=== PATIENT | male | born 1985 | race Caucasian/White ===

== ENCOUNTER 2023-02-08 16:07 | Emergency (ER) | payer OTHER, SELFPAY ==
--- NOTE | 2023-02-08 16:14 | ED.EAR ---
HPI - Ear Problem General Chief complaint: Ear Stated complaint: Left Ear Pain Source: patient and RN notes reviewed History of Present Illness HPI Narrative: 37 yo M presents to urgent care with complaints of left ear pain x 2 days. Pt denies any fevers, chills, chest pain, SOB, congestion, sore throat, N/V/D, or other symptoms. Related Data Home Medications Medication Instructions Recorded Confirmed insulin aspart U-100 100 unit/mL 150 unit subcut DAILY 02/08/23 02/08/23 subcutaneous solution (Novolog U-100 Insulin aspart) levothyroxine 25 mcg tablet 25 mcg PO DAILY 02/08/23 02/08/23 lisinopril 20 mg tablet 20 mg PO DAILY 02/08/23 02/08/23 Allergies Allergy/AdvReac Type Severity Reaction Status Date / Time No Known Allergies Allergy Unknown Verified 02/08/23 16:17 Review of Systems Review of Systems: Pertinent positives and pertinent negatives per HPI. COUNT INCLUDES THE [facility] Past Medical History Medical History (Updated 02/08/23 @ 16:31 by Aracelis Gamble, STEAM TRAIN DRIVER) Retinopathy Family History Family History (Updated 06/05/19 @ 08:15 by Aracelis Aponte, [facility]) Mother Hypothyroidism Other Alzheimer disease Anxiety Cancer Hypertension Thyroid disease Social History Social History (Updated 06/04/19 @ 13:14 by Phil Nassar) Smoking status: Never smoker Alcohol intake: current Comments At the time of my signature, I reviewed and agree with the nursing past medical, surgical, social, and family history. There is no relevant family history pertinent to the patient complaint. Exam Narrative: GENERAL: This is a well-nourished, well-developed patient, in no apparent distress. HEAD: normocephalic, atraumatic. EYES: Sclera clear/white. Vision is grossly intact. EARS: External ears normal with the exception of dry psoriatic skin, auditory canals clear and without drainage, Right TM normal without perforation. Hearing grossly intact. Left TM erythremic and bulging. NOSE: External nose normal with no obvious nasal discharge, nares without redness, no rhinorrhea. THROAT: Mucous membranes moist, posterior pharynx clear. NECK: Neck supple, non-tender without lymphadenopathy, masses or thyromegaly. CARDIOVASCULAR: Regular rate and rhythm without murmurs, gallops, or rubs. RESPIRATORY: Clear to auscultation. Breath sounds equal bilaterally. No wheezes, rales, or rhonchi. SKIN: warm, intact with no suspicious lesions or rash, good texture and turgor. NEURO: awake, alert, and oriented to person, place and time. There were no obvious focal neurologic abnormalities. EXTREMITIES: No clubbing, cyanosis, or edema. No joint tenderness, effusion, or edema noted. BACK: Nontender without deformity or crepitus. No flank tenderness. Course Course Level of Care: Express Care Visit Vital Signs Vital signs: Reviewed Medical Decision Making MDM Narrative Medical decision making narrative: Take antibiotics as directed. May given ibuprofen and/or Tylenol as needed for pain and/or fever. Follow up with primary care provider in 7-10 days to have ear rechecked. Differential Diagnosis Differential Diagnosis: AOM, otitis externa, cerumen impaction Critical Care Time Critical Care Time Critical Care Time: No Discharge Plan Discharge Clinical Impression: Otitis media Qualifiers: Otitis media type: unspecified Chronicity: acute Qualified Code(s): H66.90 - Otitis media, unspecified, unspecified ear Patient Disposition: Home, Self-Care Condition: Stable Instructions: Antibiotic Form, Ear Infection in Children (AC) Additional Instructions: Take antibiotics as directed. May given ibuprofen and/or Tylenol as needed for pain and/or fever. Follow up with primary care provider in 7-10 days to have ear rechecked. Prescriptions: New amoxicillin 500 mg capsule 500 mg PO Q12H Qty: 20 0RF No Action lisinopril 20 mg tablet 20 mg PO DAILY levothyroxine 25 mcg tablet 25 mcg PO DAILY
[2023-02-08 16:30] VITALS: BP 137/77; PULSE 90; RESP 18; TEMP 36.7; O2SAT 98
== END 2023-02-08 16:35 | disposition home or self-care (01) ==
PROVIDERS: Emergency Provider Nurse Practitioner Family
DX: H66.90 Otitis media, unspecified, unspecified ear (principal); Z79.4 Long term (current) use of insulin
CPT/HCPCS: 99203; G0463

== ENCOUNTER 2024-04-25 13:24 | Emergency (ER) | payer OTHER, SELFPAY ==
[2024-04-25 13:29] VITALS: BP 151/91; PULSE 102; RESP 16; TEMP 36.9; O2SAT 99
--- NOTE | 2024-04-25 13:35 | ED_ITS ---
HPI - Skin/Abscess/Foreign Bdy General Chief complaint: Wound/Laceration Stated complaint: abcess on right inner thigh Time Seen by Provider: 04/25/24 13:43 Source: patient and RN notes reviewed Mode of arrival: ambulatory Limitations: dementia History of Present Illness HPI narrative: 38-year-old male with history of diabetes presents with concern for an abscess on his right inner thigh. Reports history of infected ingrown hairs. He denies any fever, body aches, chills, sweats MD complaint: other (Redness) Related Data Home Medications Medication Instructions Recorded Confirmed insulin aspart U-100 100 unit/mL 150 unit subcut DAILY 02/08/23 02/08/23 subcutaneous solution (Novolog U-100 Insulin aspart) levothyroxine 25 mcg tablet 25 mcg PO DAILY 02/08/23 02/08/23 lisinopril 20 mg tablet 20 mg PO DAILY 02/08/23 02/08/23 hydrocortisone 2.5 % topical cream applic topical 04/25/24 Allergies Allergy/AdvReac Type Severity Reaction Status Date / Time No Known Allergies Allergy Unknown Verified 04/25/24 13:35 Review of Systems Review of Systems: CONSTITUTIONAL: Denies malaise, chills, sweats, or fever. EYES: Denies redness, or discharge. ENT: Denies rhinorrhea, congestion, swollen lips, swollen tongue CARDIOVASCULAR: Denies chest pain, palpitations, or edema. RESPIRATORY: Denies cough or dyspnea. GASTROINTESTINAL: Denies abdominal pain, nausea, vomiting SKIN: Reports redness, swelling to the right inner thigh. Denies purulent drainage, vesicles, bullae, numbness, pain beyond proportion MUSCULOSKELETAL: Denies joint pain or myalgia. NEUROLOGIC: Denies headache. All systems reviewed & are unremarkable except as noted in HPI and below PMFSH Past Medical History Medical History (Updated 04/25/24 @ 13:55 by Diane Gonzalez NP) Retinopathy Family History Family History (Updated 06/05/19 @ 08:15 by Aracelis Aponte CMA) Mother Hypothyroidism Other Alzheimer disease Anxiety Cancer Hypertension Thyroid disease Social History Social History (Updated 06/04/19 @ 13:14 by Phil Nassar) Smoking status: Never smoker Alcohol intake: current Comments At time of signature, agree with nursing past medical, surgical, social and family history. There is no relevant family history pertinent to the presenting complaint Exam Narrative: GENERAL: Well-appearing, well-nourished, and in no acute distress. HEAD: Normocephalic, atraumatic. EYES: PERRLA, conjunctivae clear ENT: Mucous membranes moist. NECK: Supple. No lymphadenopathy CHEST: Clear to auscultation. No respiratory distress. HEART: Regular rate and rhythm. SKIN: Warm, dry. Proximally 1 cm raised fluctuant area to the right inner thigh surrounded by approximately 5 cm of erythema and induration without fluctuation. No vesicles, bullae, necrosis, ecchymosis, crepitus noted. NEURO: Alert and oriented x3. PSYCH: Normal mood and affect Course Course Emergency Course: Patient is aware of diagnosis, understands and agrees to treatment plan. Anticipatory guidance given. Patient agrees to follow-up as directed and is aware of reasons to seek care at the emergency department. Portions of this record may have been created with voice recognition software Level of Care: Express Care Visit Vital Signs Vital signs: Vital Signs Temperature 98.5 F 04/25/24 13:29 Pulse Rate 102 H 04/25/24 13:29 Respiratory Rate 16 04/25/24 13:29 Blood Pressure 151/91 H 04/25/24 13:29 Pulse Oximetry 99 04/25/24 13:29 Oxygen Delivery Room Air 04/25/24 13:29 Temperature 98.5 F 04/25/24 13:29 Pulse Rate 102 H 04/25/24 13:29 Respiratory Rate 16 04/25/24 13:29 Blood Pressure 151/91 H 04/25/24 13:29 Pulse Oximetry 99 04/25/24 13:29 Oxygen Delivery Room Air 04/25/24 13:29 Reviewed. Procedures Abscess I/D lower extremity: Date of Incision: 04/25/24 Time of Incision: 13:48 Side (if applicable): right Local Anesthetic: none (ice) Technique: incised with #11 blade Amount of fluid expressed (mL): 3 Irrigation: No Packing used?: none I&D Results: Pus MDM - Skin/Abscess/Foreign Bdy MDM Narrative Medical decision making narrative: I evaluated this in the express care. History is obtained from patient who is an independent historian and physical exam was performed.? Available medical records were reviewed. ? Exam findings and relevant testing show no acute concerns or changes; patient is non-toxic appearing and is in no distress. No risk factors or findings concerning for epidural abscess, diskitis, vertebral osteomyelitis, cord compression, cauda equina, vertebral fracture or bone malignancy, AAA, or pyelonephritis. Patient instructed to consider further imaging and workup through their primary care physician as an outpatient if symptoms persist. Does not appear at this time to be erythema multiforme, bullous, SJS, TEN; no evidence at this time to suggest RMSF, NSTI, endocarditis or Lyme disease; patient looks well, nontoxic and is tolerating oral intake; no neurologic signs or symptoms; no headache, photophobia or neck pain; afebrile.? Patient does not have history of of penetrating trauma, laceration, blunt trauma, recent surgery, immunosuppression, malignancy, obesity, alcoholism, corticosteroid use.? Discussed the importance of follow-up, patient agrees; question, cellulitis versus necrotizing soft tissue infection versus abscess.?? Patient is appropriate for outpatient treatment and follow-up. Critical Care Time Critical Care Time Critical Care Time: No Discharge Plan Discharge Clinical Impression: Abscess Patient Disposition: Home, Self-Care Condition: Stable Instructions: Antibiotic Form, Abscess Incision and Drainage (DC) Additional Instructions: You have had an abscess drained at [facility]. You may shower - let the soapy water clean your wound, do not scrub it. Keep your wound covered. Follow up with your primary care physician for a wound check. Go to the Emergency Department immediately if you develop any of the following symptoms: Fevers, Increased redness or swelling around where your abscess was, Increased pain, or Generalized weakness or vomiting Please Keep the wound covered and dry. Once a day: wash the wound with soap/wate r, apply bacitracin or neosporin and re-cover the wound. If you have any worsening of symptoms, including severe pain/swelling/numbness/changes in sensation/weakness, redness which expands more than it is right now or any other concerns please return to the ED immediately. Prescriptions: New doxycycline monohydrate 100 mg tablet 100 mg PO BID 7 Days Qty: 14 0RF No Action hydrocortisone 2.5 % cream TOPICAL lisinopril 20 mg tablet 20 mg PO DAILY levothyroxine 25 mcg tablet 25 mcg PO DAILY insulin aspart U-100 [Novolog U-100 Insulin aspart] 100 unit/mL solution 150 unit subcut DAILY Follow-up/Referrals: PHYSICIAN,CAP MAKER [Primary Care Provider] - Time of Disposition: 13:56
== END 2024-04-25 13:59 | disposition home or self-care (01) ==
PROVIDERS: Emergency Provider Nurse Practitioner
DX: L02.415 Cutaneous abscess of right lower limb (principal)
CPT/HCPCS: 10060; 87070; 87075; 87205; 99213; G0463

== ENCOUNTER 2025-01-02 19:31 | Emergency (ER) | payer OTHER, SELFPAY ==
--- OUTSIDE RECORDS SUMMARY | 2025-01-02 19:33 | XMS_ITS | Clinical Summary ---
Author Organization [facility] Address [address] [place] [address] Care Team Providers Care Diabetes Trainer Name Role Phone Db Lewis MD Primary Care Provider Allergies No known active allergies Medications insulin glargine (LANTUS) 100 unit/mL subCUT Soln Inject by subcutaneous injection 2 times daily. 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 90 Tab 1 1 Active insulin lispro (HUMALOG) 100 unit/mL subCUT Soln Inject by subcutaneous injection see administration instructions. 90 - 100 u daily per insulin pump max 115 u 3 Vial 0 1 Active insulin glargine (LANTUS) 100 unit/mL subCUT Soln 63 u daily 10 mL 1 2 Active Active Problems Problem Noted Date Diagnosed Date Hypothyroidism 10/08/2009 Hyperkalemia 10/08/2009 Type I (juvenile type) diabe pelon mellitus without mention of complication, not stated as uncontrolled 12/31/2008 Weight gain 12/31/2008 Elevated blood pressure (not hypertension) 12/31 Immunizations Immunization Administration Dates Next Due (ADACEL/BOOSTRIX)(10 YR UP) TDAP VACCINE, 0.5ML, IM 05/21/2007 (PNEUMOVAX 23)(50 YRS UP) PN EUMOCOCCAL POLYSACCHARIDE (PPV23) 0.5 ML, IM 12/31/2008 Influenza Vaccine Split 3+ Yrs IM 05/17/2010 Family History Medical History Relation Name Comments High Cholesterol Father Relation Name Status Comments Brother Alive Father Alive Mother Alive Sister Alive Social History Tobacco Use Types Packs/Day Years Used Date Smoking Tobacco: Never Smokeless Tobacco: Never Alcohol Use Standard Drinks/Week Comments Yes 0 (1 standard drink = 0.6 oz pur e alcohol) Sex and Gender Information Value Date Recorded Sex Assigned at Not on file Legal Sex Male 5:31 AM 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[employer] Gender Identity Not on file Sexual Orientation Not on file Last Filed Vital Signs Vital Sign Reading Time Taken Comments Blood Pressure 110/70 09/15/2010 9:09 AM CDT Pulse - - Temperature - - Respiratory Rate - - Oxygen Saturation - - Inhaled Oxygen Concentration - - Weight 103 kg (227 lb) 09/15/2010 9:09 AM CDT Height 176.5 cm (5' 9.5) 09/15/2010 9:09 AM CDT Body Mass Index 33.04 09/15/2010 9:09 AM CDT Plan of Treatment Health Maintenance Due Date Last Done Comments HPV VACCINES (1 - Male 3-dose series) 2001 HEPATITIS B VACCINES (1 of 3 - 19+ 3-dose series) 2005 DIABETES HBA1C Q 6 MONTHS 03/17/20112010, 10/09/2009, 06/01/2009 DIABETES ANNUAL FOOT EXAM 05/17/2011 05/17/2010 DIABETES ANNUAL RETINAL EXAM 05/30/2011 05/30/2010 DIABETES MICROALBUMIN ANNUAL SCREEN 09/16/201109/15, 06/01/2009 LDL CHOLESTEROL ANNUAL 09/16/2011 1, 10/09/2009, 06/01/2009 DTAP/TDAP/TD VACCINES (2 - T d or Tdap) 05/21/2017 05/21/2007 Preventative Visit- Commercial 05/21/2024 INFLUENZA VACCINE (#1) 2024 05/17/2010 Procedures Procedure Name Priority Date/Time Associated Diagnosis Comments MICROALBUMIN/CREATIN INE RATIO, RANDOM UR Routine 09/15/2010 10:10 AM CDT LIPID PANEL Routine 09/15/2010 10:10 AM CDT HEMOGLOBIN A1C Routine 09/15/2010 10:10 AM CDT from Last 3 Months or Most Recently Relevant to Health Maintenance Results * MICROALBUMIN/CREATININE RATIO, RANDOM UR (09/15/2010 10:10 AM CDT) Creatinine, Urine 229 20 - 370 mg/dL [facility] [employer] [facility] Comment: Test Performed at: [facility] [address] BENOIT OSULLIVAN DO,MPH MICROALBUMIN, URINE 0.7 mg/dL [facility] [employer] [facility] Comment: Reference Range Not established Test Performed at: [facility] [address] [address] BENOIT OSULLIVAN DO,MPH MICROALBUMIN/CREAT RATIO, UR 3 <30 mcg/mg creat [facility] Comment: The ADA defines abnormalities in albumin excretion as follows: Category Result (mcg/mg creatinine) Normal <30 Microalbuminuria 30-299 Clinical albuminuria > OR = 300 The ADA recommends that at least two of three specimens collected within a 3-6 month period be abnormal before considering a patient to be within a diagnostic category. REPORT COMMENT: FASTING 09/15/2010 10:1 0 AM CDT Db Lewis MD URINE ORDERABLES Final Result INTERFACE SYSTEM Refer to clinic/[place] [address] * (ABNORMAL) HEMOGLOBIN A1C (09/15/2010 10:10 AM CDT) HEMOGLOBIN A1C 10.0(H) <5.7 % of total Hgb [facility] Comment: Consistent with diabetes <5.7 Decreased risk of diabetes 5.7-6.0 Increased risk of diabetes 6.1-6.4 Higher risk of diabetes > or = 6.5 Consistent with diabetes Standards of Medical Care in Diabetes-2010. Diabetes Care, 33(Supp 1): S1-S61,2010. REPORT COMMENT: FASTING Test Performed at: [facility] [address] BENOIT OSULLIVAN DO,MPH 09/15/2010 10:1 0 AM CDT Db Lewis MD CHEMISTRY ORDERABLES Final Re sult Performing Organization Address [facility] Phone Number INTERFACE SYSTEM Refer to clinic/hospital department [facility] [address] [place] [address] * LIPID PANEL (09/15/2010 10:10 AM CDT) CHOLESTEROL 177 125 - 200 mg/dL [facility] Comment: Test Performed at: [facility] [address] [place] [address] BENOIT OSULLIVAN DO,MPH HDL 40 > OR = 40 mg/dL [facility] TRIGLYCERIDE 93 <150 mg/dL [facility] LDL CALCULATED 118 <130 mg/dL (calc) [facility] Comment: Desirable range <100 mg/dL for patients with CHD or diabetes and <70 mg/dL for diabetic patients with known heart disease. CHOL/HDL RATIO 4.4 < OR = 5.0 (calc) [facility] 09/15/2010 10:1 0 AM CDT Db Lewis MD CHEMISTRY ORDERABLES Final Re sult Performing Organization Address [facility] Phone Number INTERFACE SYSTEM Refer to clinic/hospital department [employer] [facility] [address] [place] [address] from Last 3 Months or Most Recently Relevant to Health Maintenance Insurance [employer] Care Teams Diabetes Trainer Relationship Specialty Start Date End Date Db Lewis MD PCP - General 12/31/08
--- OUTSIDE RECORDS SUMMARY | 2025-01-02 19:33 | XMS_ITS | Clinical Summary ---
Author Organization [facility] Physician Office Building [address] [place] [id number] Care Team Providers Care Toy Trains And Accessories Salesperson Name Role Phone Louie Schrader Primary Care Provider + Allergies Active Allergy Reactions Criticality Noted Date Comments Lisinopril Other (See comments) Medium 06/23/2024 Brain fog Medications blood-glucose meter (CONTOUR NEXT METER) misc USE DIRECTED 03/23/20 16 Active blood glucose diagnostic (CONTOUR NEXT STRIPS) strip by in vitro route. 03/23/20 16 Active insulin glargine (LANTUS U-100 INSULIN) 100 unit/mL injection Inject 40 units qHS SC as directed 02/20/20 13 Active glucagon (glucagon) 1 mg kit Use as directed for low blood sugar. 1 kit 11 09/12/19 18 Active hydrocortisone 2.5 % cream APPLY TO AFFECTED AREAS WHEN FLARED TWICE DAILY FOR NO MORE THAN 3 WEEKS IN A ROW 12/14/19 23 Active fluocinonide (LIDEX) 0.05 % cream APPLY TWICE DAILY TO AFFECTED AREAS ON TRUNK AND EXTREMITIES FOR 3 WEEKS. 12/09/19 23 Active fluocinolone in oil (DermOtic) 0.01 % drops 09/05/19 24 Active tacrolimus (PROTOPIC) 0.1 % ointment APPLY DAILY TO ACTIVE PSORIASIS AREAS OF THE SKIN WHEN FLARED. 09/05/19 24 Active rosuvastatin (CRESTOR) 20 mg tabletIndications: Type 1 diabetes mellitus with hyperglycemia (HCC) TAKE 1 TABLET BY MOUTH EVERY DAY 90 tablet 1 01/18/20 24 Active insulin aspart (NovoLOG) 100 unit/mL vial for injectionIndicatio ns:Type 1 diabetes mellitus with hyperglycemia (HCC) USE VIA INSULIN PUMP UP TO 175 UNITS DAILY 150 mL 3 12/02/19 25 Active clobetasoL (TEMOVATE) 0.05 % external solution APPLY ONCE DAILY TO PSORIASIS ON THE SCALP AT BEDTIME. 11/05/19 25 Active Synthroid 50 mcg tabletIndications: Acquired hypothyroidism Take 1 tablet (50 mcg total) by mouth daily 90 tablet 2 12/25/19 25 026 Active Synthroid 50 mcg tablet Take 1 tablet (50 mcg total) by mouth daily 90 tablet 2 04/02/20 23 025 Discontin ued(Reord er) Active Problems Problem Noted Date Diagnosed Date Insulin pump in place 06/23/2024 Assessment & Plan (12/24/2024 3:19 PM CDT): Recently placed pump back on. Not enough data to review at time of appt. No changes at this time. Assessment & Plan (06/23/2024 3:37 PM SHELL CORE AND MOLDING SUPERVISOR): No pump setting changes at this time. Hyperlipidemia due to type 1 diabetes mellitus 0 10/04/2023 Assessment & Plan (12/24/2024 3:17 PM CDT): Chronic problem. Currently taking Rosuvastatin 20mg. Last lipid panel: 06/23/24 TSP=290, WV=438. (Restarted since last labs) Assessment & Plan (06/23/2024 2:42 PM SHELL CORE AND MOLDING SUPERVISOR): Chronic problem. Currently taking Rosuvastatin 20mg. Last lipid panel: 02/27/23 STU=842, TG=94. Assessment & Plan (10/04/2023 3:56 PM CDT): Chronic, well-controlled. Continue rosuvastatin Hypoglycemia due to type 1 diabetes mellitus Assessment & Plan (09/11/2017 1:10 PM CDT): Prevention and treatment of hypoglycemia were discussed Pa has glucagon emergency kit at home and family knows how to use it. Class 2 severe obesity due t o excess calories with serious comorbidity and body mass index (BMI) of 39.0 to 39.9 in adult 02/19/2013 Assessment & Plan (12/24/2024 3:20 PM CDT): Discussed healthy diet and importance of regular physical activity (20- 30min/day, 150min/wk). Discussed sleep study for sleep apnea possibly (will contact PCP) & that tirzepatide may be covered for BMI & ELAINE if moderate to severe. Type 1 diabetes mellitus 05/24/2011 Assessment & Plan (12/24/2024 3:18 PM CDT): Chronic problem. A1c 7.0% 06/23/24. Declined A1c & glucose POCT today as he states it's too expensive. Agreeable to have A1c drawn at lab. Current medications: Novolog via Medtronic 780G insulin pump, bolus wizard on BR 3.00 CR 5 CF 10 Target 90-140 AIT 2 hours Will update A1c/CMP. Verified that he uses mychart. Aware to check results/results letter in mychart. Will contact by phone if needed. DM eye exam due. Discussed with Naman Royal: Strive for regular exercise (30min most days) and diet (get at least 4-5 servings of fruit and veggies daily, avoid processed foods, increase lean protein intake and decrease carb portions as well as fruit juices, regular soda & desserts). Watch carbs and simple sugars. Check the blood sugar: Guardian. Check the feet daily for skin breakdown and infection. Assessment & Plan (06/23/2024 2:55 PM SHELL CORE AND MOLDING SUPERVISOR): Chronic problem. A1c increased from 6.5% 10/04/23 to now 7.0%. Current medications: Novolog via Medtronic 780G insulin pump BR 3.25 CR 5 CF 10 Target 90-120 AIT 2 hours Will update labs. Verified that he uses mychart. Aware to check results/results letter in mychart. Will contact by phone if needed. DM eye exam [facility] 2022 or 2023 Discussed with Naman Royal: Strive for regular exercise (30min most days) and diet (get at least 4-5 servings of fruit and veggies daily, avoid processed foods, increase lean protein intake and decrease carb portions as well as fruit juices, regular soda & desserts). Watch carbs and simple sugars. Check the blood sugar: Guardian. Check the feet daily for skin breakdown and infection. Assessment & Plan (10/04/2023 3:54 PM CDT): Chronic, well-controlled Continue NovoLog via MM 780 G insulin pump at current She has been and prevention of hypoglycemia was discussed The patient also was provided with Tresiba, to take basal insulin in case of pump failure Assessment & Plan (02/27/2023 1:09 PM CDT): Hba1c was Lab Results Component Value Date HGBA1C 7.2 02/27/2023 today, indicating suboptimal DM control Goal Hba1c and blood glucose explained Diet and exercise were advised Prevention and treatment of hyypoglcyemia were discussed with the patient Blood glucose monitoring : DEXCOM CGM Adjustment to medications: Pump adjustment, increasing the basal rate in the afternoon from 2.9 to 3.1 units per. Patient might be interested in switching to Medtronic Mini Med pump. Will try to start process Pt has long acting insulin ( Lantus ) , and knows how to use it in case of pump failure Assessment & Plan (09/11/2017 1:09 PM CDT): Hba1c was Lab Results Component Value Date HGBA1C 8.0 09/11/2017 today, indicating sub-optimal DM control 1800 calorie, consistent carb diet recommended 30 min daily exercise, combining both aerobic and resistance exercise is strongly recommended and needed as part of diabetes management plan. The need to monitor blood glucose before meals and bedtime was discussed. Take prandial insulin before meals based on carb intake and blood glucose readings. Prevention and treatment of hyypoglcyemia discussed. Continue pump at current settings, basl 3.4 u /h IC 10, S 30 Fax logs sheets weekly Will try to get him on the sensor. Acquired hypothyroidism 05/24/2011 Assessment & Plan (12/24/2024 3:16 PM CDT): Chronic problem. Not currently taking Synthroid 50mcg daily. TSH remains elevated. Agreeable today to try again with thyroid replacement; states he does not notice improvement with medications. Will restart levothyroxine 50mcg daily. Aware to take 1st thing in morning, 30- 60 minutes before food/drink/other medications. Will repeat labs in 2-3 mos at [facility] in [place] [place]. Component Latest Ref Rng 02/27/2023 10/04/2023 06/23/2024 TSH 0.30 - 4.20 mcIUnit/mL 14.80 (H) 8.29 (H) 9.12 (H) Component Latest Ref Rng 02/27/2023 10/04/2023 06/23/2024 Free T4 0.90 - 1.70 ng/dL 0.8 0.85 (L) 0.69 (L) Assessment & Plan (06/23/2024 3:02 PM SHELL CORE AND MOLDING SUPERVISOR): Chronic problem. Not currently taking Synthroid 50mcg daily. Will update labs. Verified that he uses [employer]. Aware to check results/results letter in [employer]. Will contact by phone if needed. Assessment & Plan (10/04/2023 3:55 PM CDT): Unable to tolerate levothyroxine Update TSH and free T4 If TSH continues to rise will consider starting Henefer thyroid Assessment & Plan (09/11/2017 1:10 PM CDT): Check TFT's Recommendations to follow Hypertension associated with diabetes 05/24/2011 Assessment & Plan (12/24/2024 3:17 PM CDT): Chronic problem. Notes that his BP has been elevated at home & he's resume the lisinopril 20mg. BP elevated upon initial rooming but states he was in a hurry to get here. Normalized at time of recheck. Assessment & Plan (06/23/2024 2:52 PM SHELL CORE AND MOLDING SUPERVISOR): Chronic problem. Not on any antihypertensives. Normotensive. States that Lisinopril makes him 'brain fog.' Checks BP at home. Assessment & Plan (09/11/2017 1:09 PM CDT): Goal blood pressure is less than 140/85 Low salt diet recommended Daily aerobic exercise Continue current meds, including HNERI-I or ARB Check microalbumin Encounters Date Type Department Care Team Description 12/24/2024 2:30 PM CDT Office Visit [facility] Medical [facility] Endocr[facility]ology [address] [place] [phone] Valerie Baeza NP Type 1 diabetes mellitus with hyperglycemia (HCC) (Primary Dx); Hypertension associated with diabetes (HCC); Hyperlipidemia due to type 1 diabetes mellitus (HCC); Insulin pump in place; Acquired hypothyroidism; Class 2 severe obesity due to excess calories with serious comorbidity and body mass index (BMI) of 39.0 to 39.9 in adult (HCC) 11/17/2024 Telephone [facility] Medical [facility] Diabetes [facility] Endocr[facility] [address] [place] [phone] Valerie Baeza NP Medtronic from Last 3 Months Medical History Medical History Date Comments Personal history of other en docrine, nutritional and metabolic disease History of type 1 di abetes mellitus - (Added by TW Conv) Diabetes mellitus type I (HCC) Hypertension Diabetic retinopathy associa levy with type 1 diabetes mellitus (HCC) Family History Relation Name Status Comments Father Alive Mother Alive Social History Tobacco Use Types Packs/Day Years Used Date Smoking Tobacco: Never Smokeless Tobacco: Never Alcohol Use Standard Drinks/Week Comments Yes 0 (1 standard drink = 0.6 oz pur e alcohol) Sex and Gender Information Value Date Recorded Sex Assigned at Not on file Legal Sex Male 6:47 AM SHELL CORE AND MOLDING SUPERVISOR Gender Identity Not on file Sexual Orientation Not on file Obstetrics History Last Filed Vital Signs Vital Sign Reading Time Taken Comments Blood Pressure 132/88 12/24/2024 3:13 PM CDT Pulse 104 12/24/2024 2:18 PM CDT Temperature - - Respiratory Rate 18 12/24/2024 2:18 PM CDT Oxygen Saturation - - Inhaled Oxygen Concentration - - Weight 128.8 kg (284 lb) 12/24/2024 2:18 PM CDT Height 180.3 cm (5' 10.98) 12/24/2024 2:18 PM C DT Body Mass Index 39.63 12/24/2024 2:18 PM CDT Plan of Treatment Health Maintenance Due Date Last Done Comments Hepatitis C Screening 1986 Dilated Eye Exam 1996 Varicella Vaccines (1 of 2 - 13+ 2-dose series) 10/23/1999 Regular Well Visit/Exam 18-64 2004 Pneumococcal vaccine <65 (2 of 2 - PCV) 12/31/2009 12/31/2008 HPV Vaccines (1 - 3-dose SCD M series) 2013 DTaP/Tdap/Td Vaccine (7 - Td or Tdap) 05/21/2017 05/21/2007, 03/21/2002, 12/31/1991, Additional history exists Depression Screening 09/11/2018 09/11/2017 Covid-19 Vaccine (3 - 2023-2 5 season) 2024 08/19/2020, 07/29/2020 eGFR 02/28/2024 02/27/2023 Hemoglobin A1C 12/21/2024 06/23/2024, 09/18, 02/27/2023, Additional history exists Influenza Vaccine (#1) 2025 05/17/2010, 2004 Albumin Creatinine Ratio, Urine 06/23/2025 , 02/27/2023 Foot Exam 06/23/2025 06/23/2024, 09/11/2017 Lipid Panel 06/23/2025 06/23/2024, 02/18, 02/19/2013 TSH Level 06/23/2025 06/23/2024, 09/18, 02/27/2023 Hepatitis B Screening Completed 11/20/1996 , 05/29/1996, 04/28/1996 Procedures Procedure Name Priority Date/Time Associated Diagnosis Comments LIPID PANEL Routine 06/23/2024 3:15 PM SHELL CORE AND MOLDING SUPERVISOR Type 1 diabetes mellitus with hyperglycemia (HCC) Hyperlipidemia due to type 1 diabetes mellitus (HCC) ALBUMIN CREATININE RATIO, URINE Routine 06/23/2024 3:15 PM SHELL CORE AND MOLDING SUPERVISOR Type 1 diabetes mellitus with hyperglycemia (HCC) TSH Routine 06/23/2024 3:15 PM SHELL CORE AND MOLDING SUPERVISOR Acquired hypothyroidism POCT HEMOGLOBIN A1C Routine 06/23/2024 2 :30 PM SHELL CORE AND MOLDING SUPERVISOR Type 1 diabetes mellitus with hyperglycemia (HCC) COMPREHENSIVE METABOLIC PANEL Routine 02/27/2023 1:00 PM CDT Type 1 diabetes mellitus with hyperglycemia (HCC) from Last 3 Months or Most Recently Relevant to Health Maintenance Results * Albumin Creatinine Ratio, Urine (06/23/2024 3:15 PM SHELL CORE AND MOLDING SUPERVISOR) Albumin Ur 33.6 mg/L Comment: Interpretive Data No reference range established. Current interpretive data was last revised 2018. Creatinine Ur 138.1 mg/dL [facility] Comment: Interpretive Data No reference range established. Current interpretive data was last revised 2018. Albumin Creatinine Ratio, Ur 24 1 - 29 mg/g [facility] Urine 06/23/2024 3:15 PM SHELL CORE AND MOLDING SUPERVISOR 06/23/2024 11:21 PM SHELL CORE AND MOLDING SUPERVISOR us Valerie Baeza [employer] LAB URINE ORDERABLES Shikha l Result Performing Organization Address City/[facility]/ZIP Co de Phone Number [facility] [address] [place] [address] * (ABNORMAL) TSH (06/23/2024 3:15 PM SHELL CORE AND MOLDING SUPERVISOR) Thyroid Stimulating Hormone 9.12(H) 0.30 - 4.20 mcIUnit/mL Blood 06/23/2024 3:15 PM SHELL CORE AND MOLDING SUPERVISOR 06/23/2024 11:21 PM SHELL CORE AND MOLDING SUPERVISOR Valerie Baeza NP LAB BLOOD ORDERABLES Shikha l Result Performing Organization Address City/[facility]/ZIP Co de Phone Number [facility] [address] Department [email or web address] [place], [place] [id number] * (ABNORMAL) Lipid panel (06/23/2024 3:15 PM SHELL CORE AND MOLDING SUPERVISOR) Cholesterol 216(H) 30 - 199 mg/dL Comment: Interpretive Data Ages < or = 19 years Acceptable: <170 mg/dL Borderline high: 170-199 mg/dL High: >or= 200 mg/dL Ages > or = 20 years Desirable: <200 mg/dL Borderline high: 200-239 mg/dL High: >or= 240 mg/dL Literature References: 1. Expert Panel on Integrated Guidelines for Cardiovascular Health and Risk Reduction in Children and Adolescents. Pediatrics 2011;128:S213 2. NCEP Expert Panel. Circulation 2004;110:227 Current Interpretive Data was last revised on 2018. Triglycerides 195(H) <=149 mg/dL [facility] Comment: Interpretive Data Ages < or = 9 years Acceptable: <75 mg/dL Borderline high: 75-99 mg/dL High: >or= 100 mg/dL Ages 10 to 20 years Acceptable: <90 mg/dL Borderline high: 90-129 mg/dL High: >or= 130 mg/dL Ages > or = 20 years Desirable: <150 mg/dL Borderline high: 150-199 mg/dL High: 200-499 mg/dL Very high: >or= 499 mg/dL Literature References: 1. Expert Panel on Integrated Guidelines for Cardiovascular Health and Risk Reduction in Children and Adolescents. Pediatrics 2011;128:S213 2. NCEP Expert Panel. Circulation 2004;110:227 Current Interpretive Data was last revised on 2018. HDL 34(L) >=40 mg/dL [facility] Comment: Interpretive Data Ages < or = 19 years Acceptable: >45 mg/dL Borderline low: 40-45 mg/dL Low: <40 mg/dL Ages > or = 20 years Desirable: >or= 60 mg/dL Low: <40 mg/dL Literature References: 1. Expert Panel on Integrated Guidelines for Cardiovascular Health and Risk Reduction in Children and Adolescents. Pediatrics 2011;128:S213 2. NCEP Expert Panel. Circulation 2004;110:227 Current Interpretive Data was last revised on 2018. LDL, calculated 146(H) <=129 mg/dL [facility] Comment: Interpretive Data Ages < or = 19 years Acceptable: <110 mg/dL Borderline high: 110-129 mg/dL High: >or= 130 mg/dL Ages > or = 20 years Optimal: <100 mg/dL Near optimal: 100-129 mg/dL Borderline high: 130-159 mg/dL High: >160 mg/dL Calculated using the Barnett LDL-C estimating equation. This equation was implemented on 2024. Prior to this date LDL-C was estimated using the Friedewald equation. Literature References: 1. Expert Panel on Integrated Guidelines for Cardiovascular Health and Risk Reduction in Children and Adolescents. Pediatrics 2011;128:S213 2. NCEP Expert Panel. Circulation 2004;110:227 3. Anibal Salazar et al. MANSI Cardiol. 2019September 18;5(5):540-548. doi: 10.1001/jamacardio.2020.0013 Current Interpretive Data was last revised on 2024. Non-HDL Cholesterol 182 mg/dL [facility] Comment: Interpretive Data Ages < or = 19 years Acceptable: <120 mg/dL Borderline high: 120-144 mg/dL High: >145 mg/dL Ages > or = 20 years When triglycerides are >200 mg/dL, Non-HDL cholesterol is a secondary target of therapy with treatment goals that are 30 mg/dL greater than the LDL cholesterol target. Literature References: 1. Expert Panel on Integrated Guidelines for Cardiovascular Health and Risk Reduction in Children and Adolescents. Pediatrics 2011;128:S213 2. NCEP Expert Panel. Circulation 2004;110:227 Current Interpretive Data was last revised on 2018. Chol/HDL ratio 6 [facility] Blood 06/23/2024 3:15 PM SHELL CORE AND MOLDING SUPERVISOR 06/23/2024 11:21 PM SHELL CORE AND MOLDING SUPERVISOR Valerie Baeza NP LAB BLOOD ORDERABLES Shikha l Result [facility] [address] [place] [address] * (ABNORMAL) POCT hemoglobin A1c (06/23/2024 2:30 PM SHELL CORE AND MOLDING SUPERVISOR) Hemoglobin A1C, POC 7.0 4.0 - 5.6 % Blood 06/23/2024 2:30 PM SHELL CORE AND MOLDING SUPERVISOR Valerie Baeza NP POINT OF CARE TEST ORDERA BLES Final Result * (ABNORMAL) Comprehensive metabolic panel (02/27/2023 1:00 PM CDT) Pathologist [facility] Glucose 100(H) 65 - 99 mg/dL Lindsay iZ3DRhea Avila Comment: Fasting reference interval For someone without known diabetes, a glucose value between 100 and 125 mg/dL is consistent with prediabetes and should be confirmed with a follow-up test. BUN 15 7 - 25 mg/dL Lindsay AndersonRhea Avila Creatinine 0.93 0.60 - 1.26 mg/dL Lindsay AndersonRhea Avila eGFR 109 > OR = 60 mL/min/1.7 3m2 Lindsay iZ3DRhea Avila BUN/creat ratio SEE NOTE: (calc) Lindsay iZ3DRhea Avila Comment: Not Reported: BUN and Creatinine are within reference range. Sodium 139 135 - 146 mmol/L Lindsay AndersonRhea Avila Potassium, pl 4.3 3.5 - 5.3 mmol/L Lindsay AndersonSkillBridgeRhea Avila Chloride 104 98 - 110 mmol/L Lindsay AndersonSkillBridgeRhea Avila CO2 27 20 - 32 mmol/L Lindsay AndersonSkillBridgeRhea Avila Calcium 9.3 8.6 - 10.3 mg/dL Lindsay AndersonSkillBridgeRhea Avila Protein, sr 7.3 6.1 - 8.1 g/dL Lindsay AndersonSkillBridgeRhea Avila Albumin 4.4 3.6 - 5.1 g/dL Lindsay AndersonSkillBridgeRhea Avila GLOBULIN 2.9 1.9 - 3.7 g/dL (calc) Lindsay AndersonSkillBridgeRhea Avila Alb/glob ratio 1.5 1.0 - 2.5 (calc) Lindsay iZ3DRhea Avila Bilirubin, total 0.8 0.2 - 1.2 mg/dL Lindsay AndersonRhea Avila Alk phos 94 36 - 130 U/L Lindsay iRewindRhea Avila AST 24 10 - 40 U/L Lindsay iZ3DRhea Avila ALT (SGPT) 30 9 - 46 U/L Tytanium IdeasRhea peter Austin Blood 02/27/2023 1:00 PM CDT 02/27/2023 1:02 PM CDT Narrative [facility] - 02/28/2023 10:43 AM CDT FASTING:YES FASTING: YES us Valencia Armenta MD LAB BLOOD ORDERABLES Final Resul t [facility] [address] [place] [address] from Last 3 Months or Most Recently Relevant to Health Maintenance Insurance [facility] Care Teams [employer] Salesperson Relationship Specialty Start Date End Date Louie Schrader PA [address] [place] [address] PCP - General Internal Medicine 12/04/22
--- OUTSIDE RECORDS SUMMARY | 2025-01-02 19:33 | XMS_ITS | Continuity of Care Document ---
Author Organization [facility] Address [address] [place] [address] Phone Care Team Providers Care Senior Pricing Analyst Name Role Phone Conversion MD, Doctor Unavailable Unavailabl e Allergies, Adverse Reactions, Alerts Substance Reaction Status Criticality No Known Drug Allergies Other Active No I nformation Medications Medication Instructions Dosage Effective Dates (start - stop) Status Comments HUMALOG 100 UNITS/ML VIAL 0 DIRECTE - Active to use 100 units daily or as directed LANTUS 100 UNITS/ML VIAL 0 DIRECTE - Active to use as directed in case of pump failure ACCU-CHEK CMFRT CURVE STRIP 6 QD-daily - Active BD UF INS SYR 1 ML 31GX5/16 0 DIRECTE - Active please give short needle, to use as directed if pump failure LEVOTHYROXINE SODIUM 50MCG TAB 1 QD-daily - Active HUMALOG 100 UNITS/ML VIAL 0 DIRECTE - No Longer Active to use 100 units daily or as directed ACCU-CHEK CMFRT CURVE STRIP 6 QD-daily - No Longer Active BD INSULIN SYRINGE ULT-FINE II 0 DIRECTE - No Longer Active please give short needle, to use as directed if pump failure LANTUS 100 UNITS/ML VIAL 0 DIRECTE - No Longer Active to use as directed in case of pump failure ACCU-CHEK COMFORT CURVE STRIP 6 QD-daily - No Longer Active HUMALOG 100 U/ML UNITS 0 DIRECTE - No Longer Active to use 100 units daily or as wkobrgei39 day supply LANTUS 100 U/ML UNITS 0 DIRECTE - No Longer Active to use as directed in case of pump failure SEPTRA DS 800-160MG TABS 1 BID - No Longer Active Advance Directives Directive Yes / No Effective Date File Name No Information Encounters Encounter Description Practice Location Reason(s) For Visit Diagnoses Date Provider Providers Copied on Encounter [facility], [address], [place], [place], [id number], tel:[phone] Conversion Department No Information 1 Conversion Doctor. [facility] [place], [address], . [facility], [address], [place], [place], [address], tel:[phone] [facility] DMI WO CMP UNCNTRLD [address], [address] [place] [address], [id number], [place]. tel:[phone] [facility], [address], [place], [place], [address], tel:[phone] [facility] VIRAL INFECTION NOS [address], [address], [place], [place], [id number], [place]. tel:[phone] [facility], [address], [place], [place], [address], [place] tel:[phone] Conversion Department CELLULITIS NOS [address], [address], [place], [place], [address], [place]. tel:[phone] [facility], [address], [place], [place], [address], tel:[phone] [facility] No Information [address], [address], [place], [place], [address], [place]. tel:[phone] [facility], [address], [place], [place], [address], tel:[phone] Conversion Department DMI WO CMP NT ST UNCNTRL Apr-3 0-200 7 [address], [address], [place], [place], [address], [place]. tel:[phone] [facility], [address], [place], [place], [address], tel:[phone] Conversion Department ACUTE URI NOS Sep-2 6-200 6 [address], [address], [place], [place], [address], [place]. tel:[phone] [facility], [address], [place], [place], [address], tel:[phone] Conversion Department VACCIN FOR INFLUENZA 2 0-200 5 [address], [address], [place], [place], [address], [place]. tel:[phone] Family History Family Member Type Diagnosis Age At Onset No Information Immunizations Vaccine Date Status Comments 40045 - Influenza administered Source: [place] Unspecified 90703 - Influenza administered Source: [place] Unspecified Payers Payer name Insurance type Covered alliance party ID Authoriza tion(s) No Information Social History Type Description Quantity Date Captured Comments Sex Male Smoking Status No Information Chief Complaint And Reason For Visit No Information Reason For Referral Reason For Referral No Information History Of Present Illness Encounter Date Complaint History Of Prese nt Illness No Information Functional Status Date Functional Assessmen t No Information Instructions Date Instruction Additional Infor mation No Information Assessments Type Assessment Date No Information Patient Care Teams Name Effective Dates (start - stop) Status Members No Information
--- OUTSIDE RECORDS SUMMARY | 2025-01-02 19:35 | XMS_ITS | Continuity of Care Document ---
Author Organization [facility] Address [address] [place] [address] Phone Care Team Providers Care Zipper Cutter Name Role Phone Conversion MD, Doctor Unavailable [...] to use 100 units daily or as [id number] day supply LANTUS 100 U/ML UNITS 0 DIRECTE - No Longer Active to use as directed in case of pump failure SEPTRA DS 800-160MG TABS 1 BID - No Longer Active Advance Directives Directive Yes / No Effective Date File Name No Information Encounters Encounter Description Practice Location Reason(s) For Visit Diagnoses Date Provider Providers Copied on Encounter [facility], [address], [place], [place], [id number], tel:[phone] Conversion Department No Information 1 Conversion Doctor. [facility] [place], [address], . [facility], [address], [place], [place], [address], tel:[phone] [facility] DMI WO CMP UNCNTRLD [address], [address] [place] [address], [id number], [place]. tel:[phone] [facility], [address], [place], [place], [address], tel:[phone] [facility] VIRAL INFECTION NOS [address], [address], [place], [place], [id number], [place]. tel:[phone] [facility], [address], [place], [place], [id number], [place] tel:[phone] Conversion Department CELLULITIS NOS [address], [address], [place], [place], [address], [place]. tel:[phone] [facility], [address], [place], [place], [address], tel:[phone] [facility] No Information [address], [address], [place], [place], [address], [place]. tel:[phone] [facility], [address], [place], [place], [address], tel:[phone] Conversion Department DMI WO CMP NT ST UNCNTRL Apr-3 0-200 7 Tony Eliud[address], [address], [place], [place], [address], [place]. tel:[phone] [facility], [address], [place], [place], [address], tel:[phone] Conversion Department ACUTE URI NOS Sep-2 6-200 6 Tony [address]ud[address], [address], [place], [place], [address], [place]. tel:[phone] [facility], [address], [place], [place], [address], tel:[phone] Conversion Department VACCIN FOR INFLUENZA 2 0-200 5 [address]ud[address], [address], [place], [place], [address], [place]. tel:[phone] Family History Family Member Type Diagnosis Age At Onset No Information Immunizations Vaccine Date Status Comments 47096 - Influenza administered Source: [place] Unspecified 34610 - Influenza administered Source: [place] Unspecified Payers Payer name Insurance type Covered democrat ID Authoriza tion(s) No Information Social History [...]
--- NOTE | 2025-01-02 19:37 | ED.EAR ---
HPI - Ear Problem General Chief complaint: Ear Stated complaint: Left Ear Pain History of Present Illness HPI Narrative: 39-year-old male presents with left ear pain for 4-5 days. Patient states he had a ear wax impaction. Use Debrox and an elephant ear at home. You notice pain shortly after. Afebrile. All systems reviewed and negative except as noted above. Related Data Home Medications ?Medication ?Instructions ?Recorded ?Confirmed ?Last Taken ?Type insulin aspart U-100 100 unit/mL 150 unit subcut DAILY 02/08/23 02/08/23 Unknown History subcutaneous solution (Novolog U-100 Insulin aspart) hydrocortisone 2.5 % topical cream applic topical 04/25/24 Unknown History fluocinolone acetonide oil 0.01 % drp 01/02/25 Unknown History ear drops levothyroxine 50 mcg tablet mcg 01/02/25 Unknown History (Synthroid) Allergies Allergy/AdvReac Type Severity Reaction Status Date / Time No Known Allergies Allergy Unknown Verified 01/02/25 19:35 [facility] Past Medical History Medical History (Updated 01/02/25 @ 19:42 by Myriam Adkins NP) Retinopathy Family History Family History (Updated 06/05/19 @ 08:15 by Aracelis Aponte CMA) Mother Hypothyroidism Other Alzheimer disease Anxiety Cancer Hypertension Thyroid disease Social History Social History (Updated 06/04/19 @ 13:14 by Phil Nassar) Smoking status: Never smoker Alcohol intake: current Comments At time of signature, agree with nursing past medical, surgical, social and family history. There is no relevant family history pertinent to the presenting complaint. Exam Narrative: GENERAL: This is a well-nourished, well-developed patient, in no apparent distress. HEAD: normocephalic, atraumatic. EYES: PERRL. Sclera clear/white. Vision is grossly intact. EARS: External ears normal, Left ear canal is erythematous and swollen. Right ear canal is normal., left TM is erythematous bulging. Right TM is normal. No perforation bilaterally .hearing grossly intact. History of psoriasis, dry excoriated skin to bilateral ears. NOSE: External nose normal NECK: Neck supple, non-tender without lymphadenopathy, masses or thyromegaly. CARDIOVASCULAR: Regular rate and rhythm without murmurs, gallops, or rubs. RESPIRATORY: Clear to auscultation. Breath sounds equal bilaterally. No wheezes, rales, or rhonchi. SKIN: warm, Dry, intact with no suspicious lesions or rash, good texture and turgor. NEURO: awake, alert, and oriented to person, place and time. There were no obvious focal neurologic abnormalities. EXTREMITIES: No joint tenderness, effusion, or edema noted. Course Course Level of Care: Express Care Visit Vital Signs Vital signs: Vital Signs Temperature 36.2 C L 01/02/25 19:38 Pulse Rate 111 H 01/02/25 19:38 Respiratory Rate 18 01/02/25 19:38 Blood Pressure 151/79 H 01/02/25 19:38 Pulse Oximetry 98 01/02/25 19:38 Oxygen Delivery Room Air 01/02/25 19:38 Temperature 36.2 C L 01/02/25 19:38 Pulse Rate 111 H 01/02/25 19:38 Respiratory Rate 18 01/02/25 19:38 Blood Pressure 151/79 H 01/02/25 19:38 Pulse Oximetry 98 01/02/25 19:38 Oxygen Delivery Room Air 01/02/25 19:38 Reviewed Medical Decision Making MDM Narrative Medical decision making narrative: will treat patient with antibiotic ear drop and oral antibiotic due to exam findings. Patient agrees with plan of care. Vital Signs Vital Signs: Vital Signs Temperature 36.2 C L 01/02/25 19:38 Pulse Rate 111 H 01/02/25 19:38 Respiratory Rate 18 01/02/25 19:38 Blood Pressure 151/79 H 01/02/25 19:38 Pulse Oximetry 98 01/02/25 19:38 Oxygen Delivery Room Air 01/02/25 19:38 Temperature 36.2 C L 01/02/25 19:38 Pulse Rate 111 H 01/02/25 19:38 Respiratory Rate 18 01/02/25 19:38 Blood Pressure 151/79 H 01/02/25 19:38 Pulse Oximetry 98 01/02/25 19:38 Oxygen Delivery Room Air 01/02/25 19:38 Discharge Plan Discharge Clinical Impression: External otitis of left ear, Acute left otitis media Patient Disposition: Home Condition: Stable Instructions: Antibiotic Form, Ear Infection (ED) Additional Instructions: take antibiotic as prescribed until. Place antibiotic ear drops as prescribed. Take ibuprofen or Tylenol every 6-8 hours as needed for pain. See your doctor if symptoms are not improving. Patient Language: Slovenian Prescriptions: New ciprofloxacin-dexamethasone 0.3-0.1 % drops,suspension 4 drp LEFT EAR Q12H 7 Days Qty: 7.5 0RF amoxicillin 875 mg tablet 875 mg PO Q12H 10 Days Qty: 20 0RF No Action hydrocortisone 2.5 % cream TOPICAL insulin aspart U-100 [Novolog U-100 Insulin aspart] 100 unit/mL solution 150 unit subcut DAILY levothyroxine [Synthroid] 50 mcg tablet fluocinolone acetonide oil 0.01 % drops Follow-up/Referrals: PHYSICIAN,HEALTHCARE SPECIALIST [Primary Care Provider] - Time of Disposition: 19:43
[2025-01-02 19:38] VITALS: BP 151/79; PULSE 111; RESP 18; TEMP 36.2; O2SAT 98
== END 2025-01-02 19:45 | disposition home or self-care (01) ==
PROVIDERS: Emergency Provider Nurse Practitioner Family
DX: H60.92 Unspecified otitis externa, left ear (principal); H66.92 Otitis media, unspecified, left ear; E11.319 Type 2 diabetes mellitus with unspecified diabetic retinopathy without macular edema; Z79.4 Long term (current) use of insulin; I10 Essential (primary) hypertension; E03.9 Hypothyroidism, unspecified; L40.9 Psoriasis, unspecified
CPT/HCPCS: 99213; G0463

== ENCOUNTER 2025-03-24 13:43 | Emergency (ER) | payer OTHER, SELFPAY ==
[2025-03-24 13:47] VITALS: BP 148/82; PULSE 113; RESP 16; TEMP 36.6; O2SAT 97
--- NOTE | 2025-03-24 13:58 | ED.GENADULT ---
HPI - General Adult General Chief complaint: Urogenital-Male Stated complaint: Multiple complaints Time Seen by Provider: 03/24/25 13:53 Source: patient, RN notes reviewed and old records reviewed Mode of arrival: ambulatory Limitations: no limitations History of Present Illness HPI narrative: 39 year old male who presents to [facility] care with complaints of 2 week history of some heartburn, dry cough, intermittent headache and pressure to bladder with frequency, denies any concern for STD exposure.. Patient reports hat he is suppose to have GI test in 1 month for scope which his primary care physician has ordered. Patient reports that he has felt a little stuffed up but denies any ear pain, shortness of breath, acute sore throat or any fevers or feelings of chills or body aches. He states that he has been taking Tylenol and also has been drinking cranberry juice. Patient is type ! diabetic on insulin pump and states glucose levels have been with normal ranges. MD complaint: heartburn,dry cough,intermittent headache,pressure to bladder with frequenc Onset (ago): week(s) (2) Location: head (intermittent generalized headache) and abdomen (epigastric and bladder pressure) Severity scale (1-10): 3 Quality: aching Pain Consistency: intermittent Treatments prior to arrival: other (Tylenol and cranberry juice) Related Data Home Medications ?Medication ?Instructions ?Recorded ?Confirmed ?Last Taken ?Type insulin aspart U-100 100 unit/mL 150 unit subcut DAILY 02/08/23 02/08/23 Unknown History subcutaneous solution (Novolog U-100 Insulin aspart) levothyroxine 50 mcg tablet mcg 01/02/25 Unknown History (Synthroid) lisinopril 40 mg tablet mg 03/24/25 Unknown History Allergies Allergy/AdvReac Type Severity Reaction Status Date / Time No Known Allergies Allergy Unknown Verified 03/24/25 13:59 Review of Systems Review of Systems: CONSTITUTIONAL: Denies fever, chills, or sweats. EYES: Denies visual changes, redness, or discharge. ENT: Denies rhinorrhea, admits to some sinus congestion, no sore throat, or otalgia. CARDIOVASCULAR: Denies chest pain, palpitations, or edema. RESPIRATORY: Reports dry cough, denies dyspnea. GASTROINTESTINAL: Denies abdominal pain, reports some epigastric burning like heart burn, no nausea, vomiting, or diarrhea.reports pressure in bladder and some urinary frequency GENITOURINARY: Denies dysuria or hematuria. reports some bladder pressure and some urinary frequency. SKIN:has areas of psoriasis noted on knees and has some dry skin in ear canals with no excoriation MUSCULOSKELETAL: Denies back pain, joint pain, or myalgia. NEUROLOGIC: Reports intermittent headache, no numbness, or weakness. PSYCHIATRIC: Denies anxiety or depression. All systems reviewed & are unremarkable except as noted in HPI and below PMFSH Past Medical History Medical History (Updated 03/25/25 @ 11:17 by Yamileth Siu APRN) Psoriasis (a type of skin inflammation) Type I diabetes mellitus Hypertension Retinopathy Surgical History Surgical History (Updated 03/25/25 @ 10:59 by Yamileth Siu APRN) History of orthopedic surgery left index finger Family History Family History (Updated 06/05/19 @ 08:15 by Aracelis Aponte, [facility]) Mother Hypothyroidism Other Alzheimer disease Anxiety Cancer Hypertension Thyroid disease Social History Social History (Updated 03/25/25 @ 10:56 by Yamileth Siu APRN) Alcohol intake: current Alcohol use details: social Substance use type: does not use Gender identity (if verbalized by the patient): Male Comments At time of signature, agree with nursing past medical, surgical, social and family history. There is no relevant family history pertinent to the presenting complaint Exam Narrative: GENERAL: Well-appearing, well-nourished, and in no acute distress. HEAD: Normocephalic, atraumatic. EYES: PERRLA and EOMI.no nystagmus ENT: Nares clear, no rhinorrhea or epistaxis. Mucous membranes moist.TMs normal with some dry skin noted in ear canals with no excoriation, history of psoriasis, throat red with some mild tonsil swelling noted post nasal drainage. NECK: Supple.no lymphadenopathy CHEST: Clear to auscultation. No respiratory distress. occasional dry cough noted SAO2 97% on room air no tachypnea HEART: Regular rate and rhythm. No murmur heard. Normal peripheral pulses. ABDOMEN: Soft, nontender on palpation reports some heart burn intermittent nondistended, normal active bowel sounds., reports some bladder pressure denies any burning or pain with urination no flank pain some frequency reported. EXTREMITIES: Normal range of motion. No edema. SKIN: Warm, dry, psoriasis noted to knees and some dry skin in ear canals without excoriation, history of psoriasis. NEURO: No focal deficits. Alert and oriented x3.denies any acute sharp headache pain Course Course Emergency Course: Patient is aware of diagnosis, understands and agrees to treatment plan.? Anticipatory guidance given.? Patient agrees to follow-up as directed and is aware of reasons to seek care at the emergency department. Portions of this record may have been created with voice recognition software Level of Care: Express Care Visit Vital Signs Vital signs: Vital Signs Temperature 36.6 C 03/24/25 13:47 Pulse Rate 113 H 03/24/25 13:47 Respiratory Rate 16 03/24/25 13:47 Blood Pressure 148/82 H 03/24/25 13:47 Pulse Oximetry 97 03/24/25 13:47 Oxygen Delivery Room Air 03/24/25 13:47 Temperature 36.6 C 03/24/25 13:47 Pulse Rate 113 H 03/24/25 13:47 Respiratory Rate 16 03/24/25 13:47 Blood Pressure 148/82 H 03/24/25 13:47 Pulse Oximetry 97 03/24/25 13:47 Oxygen Delivery Room Air 03/24/25 13:47 Reviewed Medical Decision Making MDM Narrative Medical decision making narrative: Exam findings and imaging show no acute concerns or changes; patient is non-toxic appearing and is in no distress.? Patient is appropriate for outpatient treatment and follow-up Medical Records Medical records reviewed: Yes I reviewed the external patient's medical records. Vital Signs Vital Signs: Vital Signs Temperature 36.6 C 03/24/25 13:47 Pulse Rate 113 H 03/24/25 13:47 Respiratory Rate 16 03/24/25 13:47 Blood Pressure 148/82 H 03/24/25 13:47 Pulse Oximetry 97 03/24/25 13:47 Oxygen Delivery Room Air 03/24/25 13:47 Temperature 36.6 C 03/24/25 13:47 Pulse Rate 113 H 03/24/25 13:47 Respiratory Rate 16 03/24/25 13:47 Blood Pressure 148/82 H 03/24/25 13:47 Pulse Oximetry 97 03/24/25 13:47 Oxygen Delivery Room Air 03/24/25 13:47 reviewed Lab Data Lab results reviewed: Yes I reviewed the patient's lab results. Lab results narrative: strep screen negative, strep culture sent urine dip: Glucose negative bilirubin negative ketone negative specific gravity greater than or equal to 1.030 trace blood pH 6.0 protein 1+, urobilinogen 0.2, nitrate negative, leukocyte negative Labs: Lab Results 03/24/25 Range/Units 14:24 POC Urine Color Yellow POC Urine Clarity Clear POC Urine pH 6.0 POC Ur Specif Haddock 1.030 POC Urine Protein 1+ (Negative) POC Ur Glucose (UA) Negative (Negative) POC Urine Ketones Negative (Negative) POC Urine Blood Trace (Negative) POC Urine Nitrite Negative (Negative) POC Urine Bilirubin Negative (Negative) POC Urine Urobilinogen 0.2 POC U Leukocyte Esteras Negative (Negative) POC Grp A Strep Screen Negative (Negative) Critical Care Time Critical Care Time Critical Care Time: No Discharge Plan Discharge Clinical Impression: Upper respiratory infection, Urinary frequency, Gastro-esophageal reflux Patient Disposition: Home Condition: Stable Instructions: Upper Respiratory Infection (ED), GERD (Gastroesophageal Reflux Disease) (ED), Urinary Urgency and Frequency (DC) Additional Instructions: Increase fluids especially juices and water Zyrtec Claritin or Sabi daily Nmsy-nrk-ctatjpf cough and cold medicine of your choice for your symptoms heat to the face 20-30 minutes 4-6 times a day for pain Salt water gargles, throat lozenges or throat sprays as desired Your strep test today was negative. A throat culture will be sent to the laboratory for further testing. IF the test is positive, you will receive a phone call within 48 hours and an appropriate antibiotic will be initiated at that time. urine lab sent for culture, trace intact blood negative leukocytes If your symptoms persist, change or worsen significantly before you can contact your personal physician then please, without delay, go to the emergency department for further evaluation. Follow-up with PCP in 7-10 days or sooner if needed Follow up with PCP soon in regards to your blood pressure which is elevated above threshold for referral. Blood pressure above 120/80 may indicate pre-hypertension.148/82 Patient Language: Maori Prescriptions: No Action lisinopril 40 mg tablet insulin aspart U-100 [Novolog U-100 Insulin aspart] 100 unit/mL solution 150 unit subcut DAILY levothyroxine [Synthroid] 50 mcg tablet Follow-up/Referrals: UNKNOWN,DOCTOR [Primary Care Provider] Time of Disposition: 14:33 Quality [place] Coma Scale Eyes: Open Verbal: Oriented and Alert Motor: Follows Commands Maureen Coma Total Score: 15
[2025-03-24 14:27] LABS: EDSTREPNEGPOS1 Negative (Negative); EDUAAPPEAR Clear; EDUABILI Negative (Negative); EDUABLOOD Trace (Negative); EDUACOLOR1 Yellow; EDUAGLUCOSE Negative (Negative); EDUAKETONE Negative (Negative); EDUALEUKO Negative (Negative); EDUANITRATE Negative (Negative); EDUAPH 6.0; EDUAPROTEIN 1+ (Negative); EDUASPGRAVITY 1.030; EDUAUROBILI 0.2
--- OUTSIDE RECORDS SUMMARY | 2025-03-24 15:12 | XMS_ITS | Encounter Summary ---
Author Organization [facility] Healthcare Address [address] [place] [address] Care Team Providers Care Toddler Caregiver Name Role Phone Guilherme Collins MD Primary Care Provider Valencia Armenta MD Unavailable Valerei Baeza NP Unavailable [phone] Fredi Adams MD Unavailable [phone] Encounter Details Date Type Department Care Team (Late st Contact Info) Description 02/08/2025 Results Follow-Up [facility] Medical [facility] Primary Care at [address] [address] Guilherme Collins MD [address] [place] [address] [address] [place] [address] Vitamin B12, Vitamin D 25 hydroxy, CBC without differential, Additional followed-up results: 5 Social History Tobacco Use Types Packs/Day Years Used Date Smoking Tobacco: Never Smokeless Tobacco: Never Alcohol Use Standard Drinks/Week Comments Yes 0 (1 standard drink = 0.6 oz pur e alcohol) PHQ-2 Answer Date Recorded PHQ-2 Total Score (If total score is 3 or more points, staff should administer the PHQ-9) 0 01/27/2025 Sex and Gender Information Value Date Recorded Sex Assigned at Not on file Legal 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 He would also like to know the process about how he will learn how to use it. Could someone please give him a call back? Does message need to be routed? Yes-Action Needed * Result Encounter Note - Guilherme Collins MD - 02/20/2025 1:03 PM CDT Home sleep study was positive for moderate obstructive sleep apnea. He is completely ablated with the use of a CPAP device and if willing please send order for Auto-CPAP to a supply company 5-15 cm h20. Once CPAP is obtained set up a follow-up appointment with me in 2 months * Result Encounter Note - Guilherme Collins MD - 02/08/2025 11:25 PM CDT Slightly improved cholesterol levels which is step in right direction, low vitamin D and elevated vitamin B12 levels noted. If taking vitamin B12 supplements, please skip on weekends and start of increase vitamin D intake to 7124-5095 international units daily OTC. Other labs within normal limits. documented in this encounter Plan of Treatment Upcoming Encounters Date Type Department Care Team (Latest Contact Info) Description 04/28/2025 9:00 AM GRISTMILL OPERATOR Hospital Encounter [address] [address] Subhash Caldwell MD [address] [place] [id number] 04/28/2025 9:00 AM GRISTMILL OPERATOR Anesthesia Event [address] [address] Parker Ivey CRNA [address] [place] [address] 04/28/2025 9:00 AM GRISTMILL OPERATOR - 04/28/2025 9:30 AM GRISTMILL OPERATOR Surgery [facility] [address] [place] [address] Subhash Caldwell MD [address] [facility] [address] [place] [address] ESOPHAGOGASTRODUODENOSCOPY Scheduled Procedures Name Priority Associated Diagnoses Date/Ti nm ESOPHAGOGASTRODUODENOSCOPY Dysphagia, unspecified type Gastroesophageal reflux disease without esophagitis 04/28/2025 9:00 AM GRISTMILL OPERATOR documented as of this encounter Visit Diagnoses Not on filedocumented in this encounter Care Teams Toddler Caregiver Relationship Specialty Start Date End Date Guilherme Collins MD [address] [facility] [address] [place] [address] PCP - General Family Medicine 01/27/25 [place] [address] [address] Consulting Physician Endocrinology Diabetes & Metabolism 01/27/25 [place] [address] [address] Nurse Practitioner Endocrinology Diabetes & Metabolism 01/27/25 Fredi Adams MD [address] [place] [address] Referring Physician Tongue Presser 01/27/25 documented as of this encounter
--- OUTSIDE RECORDS SUMMARY | 2025-03-24 15:12 | XMS_ITS | Data Portability ---
Author Organization [facility] [employer], Main Office Address [address] [place] [address] Assessment No assessment recorded. Plan of Treatment Reminders Order Date Submit Date Provider Last Modified By Organization Details Last Modified Time Details Appointments None recorded. Lab urinalysis, dipstick 2022 023 [facility] [address], [address], [place], [address], 3 15:27:15 culture, urine 2022 023 [email or web address] [facility], [address], [place], [address], 3 14:01:38 Referral endocrinolo gy referral 2022 023 [email or web address] Shelly Ferris MD, [address], [place], [address], 3 12:30:15 Procedures None recorded. Surgeries None recorded. Imaging None recorded. Medication Orders lisinopril 20 mg tablet 2022 023 [facility] [id number], [address], 3 15:03:29 Synthroid 25 mcg tablet 2022 023 [facility] [id number], [address], 3 15:10:24 Patient TargetsNo targets recorded. Patient InstructionsNo instructions recorded. Reason for Referral Endocrinology Referral for U ncontrolled type 1 diabetes mellitus Referring Physician: Louie Schrader, Family Medicine, Encounter Date: 11/30/2022 Results Created Date Observation Date Name Description Value Unit Range Abnormal Flag Note LastModifiedBy Organization Detail LastModifiedTime 07/18/19 22 07/19/2021 HEMOG LOBIN A1C hemoglobin A1C 8.1 %_of_ total _HGB <5.7 high For sweta saenz witho ut known diabe pelon, a hemog lobin A1c value of 6.5% or great er indic ates that they may have diabe pelon and this shoul d be confi rmed with a follo w-up test. For sweta ne with known diabe pelon, a value <7% indic ates that their diabe pelon is well contr olled and a value great er than or equal to 7% indic ates subop timal contr ol. A1c targe ts shoul d be indiv idual ized based on durat ion of diabe pelon, age, comor bid condi tions , and other consi derat ions. Curre ntly, no conse nsus exist s aries espinoza use of hemog lobin A1c for diagn osis of diabe pelon for child [place]. Not Available [facility] [address] [place], [address], 07/19/2021 15:02:42 07/18/19 22 07/19/2021 TSH TSH 12.67 mIU/L 0.40-4 .50 high Not Available [facility] [address] [place], [address], 07/19/2021 15:02:41 07/18/19 22 07/19/2021 T4, FREE T4, free 0.9 NG/dL 0.8-1. 8 normal Not Available [facility] [address] [place], [address], 07/19/2021 15:02:40 07/18/19 22 07/19/2021 ALBUM IN, RANDO M URINE W/CRE ATINI NE creatinine, random urine 164 mg/dL 20-320 normal Not Available [address], [address], 07/19/2021 15:02:40 07/18/19 22 07/19/2021 ALBUM IN, RANDO M URINE W/CRE ATINI NE albumin, urine 14.6 mg/dL see note: normal Refer ence Range : Refer ence Range Not estab lishe d Not Available [address], [address], 07/19/2021 15:02:40 07/18/19 22 07/19/2021 ALBUM IN, RANDO M URINE W/CRE ATINI NE albumin/crea tinine ratio, random urine 89 mcg/m g_cre at <30 high The ADA defin es abnor malit ies in album in excre tion as follo ws: Album inuri a Categ ory Resul t (mcg/ mg creat inine ) Krystyna l to Mildl y incre ased <30 Moder ately incre ased 30-29 9 Sever vargas incre ased > OR = 300 The ADA recom mends that at least two of three speci mens colle cted withi n a 3-6 month perio d be abnor mal befor e consi mayito g a patie nt to be withi n a diagn ostic categ ory. Not Available [facility] [address] [address] [place], [address], 07/19/2021 15:02:40 07/18/19 22 07/19/2021 COMPR EHENS XIOMARA METAB OLIC PANEL glucose 201 mg/dL 65-139 high Non-f astin g refer ence inter chucho Not Available [address] [address] [place], [address], 07/19/2021 15:02:39 07/18/19 22 07/19/2021 COMPR EHENS XIOMARA METAB OLIC PANEL eGFR 135 mL/mi n/1.7 3m2 > or = 60 normal Not Available [address], [address], 07/19/2021 15:02:39 07/18/19 22 07/19/2021 COMPR EHENS XIOMARA METAB OLIC PANEL urea nitrogen (BUN) 17 mg/dL 7-25 normal Not Available [address], [address], 07/19/2021 15:02:39 07/18/19 22 07/19/2021 COMPR EHENS XIOMARA METAB OLIC PANEL creatinine 0.80 mg/dL 0.60-1 .35 normal Not Available [address], [address], 07/19/2021 15:02:39 07/18/19 22 07/19/2021 COMPR EHENS XIOMARA METAB OLIC PANEL eGFR non-afr. omani 117 mL/mi n/1.7 3m2 > or = 60 normal Not Available [address], [address], 07/19/2021 15:02:39 07/18/19 22 07/19/2021 COMPR EHENS XIOMARA METAB OLIC PANEL BUN/creatini ne ratio not applic able (calc ) 6-22 Not Available [address], [address], 07/19/2021 15:02:39 07/18/19 22 07/19/2021 COMPR EHENS XIOMARA METAB OLIC PANEL sodium 138 mmol/ L 135-14 6 normal Not Available [address], [address], 07/19/2021 15:02:39 07/18/19 22 07/19/2021 COMPR EHENS XIOMARA METAB OLIC PANEL potassium 4.2 mmol/ L 3.5-5. 3 normal Not Available [address] [place], [address], 07/19/2021 15:02:39 07/18/19 22 07/19/2021 COMPR EHENS XIOMARA METAB OLIC PANEL chloride 101 mmol/ L 98-110 normal Not Available [address], [address], 07/19/2021 15:02:39 07/18/19 22 07/19/2021 COMPR EHENS XIOMARA METAB OLIC PANEL carbon dioxide 28 mmol/ L 20-32 normal Not Available [address], [address], 07/19/2021 15:02:39 07/18/19 22 07/19/2021 COMPR EHENS XIOMARA METAB OLIC PANEL calcium 9.1 mg/dL 8.6-10 .3 normal Not Available [address], [address], 07/19/2021 15:02:39 07/18/19 22 07/19/2021 COMPR EHENS XIMOARA METAB OLIC PANEL protein, total 7.5 g/dL 6.1-8. 1 normal Not Available [address], [address], 07/19/2021 15:02:39 07/18/19 22 07/19/2021 COMPR EHENS XIOMARA METAB OLIC PANEL albumin 4.5 g/dL 3.6-5. 1 normal Not Available [address], [address], 07/19/2021 15:02:39 07/18/19 22 07/19/2021 COMPR EHENS XIOMARA METAB OLIC PANEL globulin 3.0 g/dL_ (calc ) 1.9-3. 7 normal Not Available [address], [address], 07/19/2021 15:02:39 07/18/19 22 07/19/2021 COMPR EHENS XIOMARA METAB OLIC PANEL albumin/glob ulin ratio 1.5 (calc ) 1.0-2. 5 normal Not Available [address], [address], 07/19/2021 15:02:39 07/18/19 22 07/19/2021 COMPR EHENS XIOMARA METAB OLIC PANEL bilirubin, total 1.3 mg/dL 0.2-1. 2 high Not Available [address], [address], 07/19/2021 15:02:39 07/18/19 22 07/19/2021 COMPR EHENS XIOMARA METAB OLIC PANEL alkaline phosphatase 102 U/L 36-130 normal Not Available [address] [address] [place], [address], 07/19/2021 15:02:39 07/18/19 22 07/19/2021 COMPR EHENS XIOMARA METAB OLIC PANEL AST 14 U/L 10-40 normal Not Available [address], [address], 07/19/2021 15:02:39 07/18/19 22 07/19/2021 COMPR EHENS XIOMARA METAB OLIC PANEL ALT 20 U/L 9-46 normal Not Available [address], [address], 07/19/2021 15:02:39 07/18/19 22 07/19/2021 LIPID PANEL WITH RATIO S LDL-choleste rol 114 mg/dL _(krystin c) high Refer ence range : <100 Bryon able range <100 mg/dL for prima ry preve ntion ; <70 mg/dL for patie nts with CHD or diabe tic patie nts with > or = 2 CHD risk facto rs. LDL-C is now calcu lated using the [facility] n-Hop ondina clarke n, which is a valid ated novel metho d provi ding shayna r accur acy than the Fried gabriela equat ion in the estim ation of LDL-C . Yancy n SS et al. MANSI. 2013; 310(4 2): 2061- 2068 (http ://ed ucati on.[place] minerCardioPhotonics. com/f aq/FA Q164) Not Available [address], [address], 07/19/2021 15:02:39 07/18/19 22 07/19/2021 LIPID PANEL WITH RATIO S cholesterol, total 177 mg/dL <200 normal Not Available [address], [address], 07/19/2021 15:02:39 07/18/19 22 07/19/2021 LIPID PANEL WITH RATIO S HDL cholesterol 41 mg/dL > or = 40 normal Not Available [address], [address], 07/19/2021 15:02:39 07/18/19 22 07/19/2021 LIPID PANEL WITH RATIO S triglyceride s 117 mg/dL <150 normal Not Available [address], [address], 07/19/2021 15:02:39 07/18/19 22 07/19/2021 LIPID PANEL WITH RATIO S chol/HDLC ratio 4.3 (calc ) <5.0 normal Not Available [address], [address], 07/19/2021 15:02:39 07/18/19 22 07/19/2021 LIPID PANEL WITH RATIO S LDL/HDL ratio 2.8 (calc ) Below [place] ge Risk: <2.28 [place] Risk: 2.29- 4.90 Moder ate Risk: 4.91- 7.12 High Risk: >7.13 Not Available [address], [address], 07/19/2021 15:02:39 07/18/19 22 07/19/2021 LIPID PANEL WITH RATIO S non HDL cholesterol 136 mg/dL _(krystin c) <130 high For patie nts with diabe pelon plus 1 major ASCVD risk facto r, treat ing to a non-H DL-C goal of <100 mg/dL (LDL- C of <70 mg/dL ) is consi dered a thera peuti c optio n. Not Available [facility] [address] [place], [address], 07/19/2021 15:02:39 02/29/20 22 03/03/2022 HEMOG LOBIN A1C hemoglobin A1C 6.7 %_of_ total _HGB <5.7 high For someo ne witho ut known diabe pelon, a hemog lobin A1c value of 6.5% or great er indic ates that they may have diabe pelon and this shoul d be confi rmed with a follo w-up test. For someo ne with known diabe pelon, a value <7% indic ates that their diabe pelon is well contr olled and a value great er than or equal to 7% indic ates subop timal contr ol. A1c targe ts shoul d be indiv idual ized based on durat ion of diabe pelon, age, comor bid condi tions , and other consi derat ions. Curre ntly, no conse nsus exist s aries espinoza use of hemog lobin A1c for diagn osis of diabe pelon for child [place]. Not Available [facility] [address] [address], [place], [address], 03/03/2022 16:07:24 02/29/20 22 03/03/2022 T3, FREE T3, free 3.3 pg/mL 2.3-4. 2 normal Not Available [facility] [address] [address], [place], [address], 03/03/2022 16:07:24 02/29/20 22 03/03/2022 TSH TSH 10.13 mIU/L 0.40-4 .50 high Not Available [facility] [address] [place], [address], 03/03/2022 16:07:23 02/29/20 22 03/03/2022 T4, FREE T4, free 0.9 NG/dL 0.8-1. 8 normal Not Available [address], [address], 03/03/2022 16:07:23 02/29/20 22 03/03/2022 THYRO ID PEROX IDASE ANTIB ODIES thyroid peroxidase antibodies 408 IU/mL <9 high Not Available [address], [address], 03/03/2022 16:07:22 02/29/20 22 03/03/2022 ALBUM IN, RANDO M URINE W/CRE ATINI NE creatinine, random urine 101 mg/dL 20-320 normal Not Available [address], [address], 03/03/2022 16:07:22 02/29/20 22 03/03/2022 ALBUM IN, RANDO M URINE W/CRE ATINI NE albumin, urine 0.9 mg/dL see note: normal Refer ence Range : Refer ence Range Not estab lishe d Not Available [address], [address], 03/03/2022 16:07:22 02/29/20 22 03/03/2022 ALBUM IN, RANDO M URINE W/CRE ATINI NE albumin/crea tinine ratio, random urine 9 mcg/m g_cre at <30 normal The ADA defin es abnor malit ies in album in excre tion as follo ws: Album inuri a Categ ory Resul t (mcg/ mg creat inine ) Krystyna l to Mildl y incre ased <30 Moder ately incre ased 30-29 9 Sever vargas incre ased > OR = 300 The ADA recom mends that at least two of three speci mens colle cted withi n a 3-6 month perio d be abnor mal befor e consi mayito g a patie nt to be withi n a diagn ostic categ ory. Not Available [address] [address] [place], [address], 03/03/2022 16:07:22 02/29/20 22 03/03/2022 COMPR EHENS XIOMARA METAB OLIC PANEL creatinine 0.87 mg/dL 0.60-1 .26 normal Not Available [address] [address] [place], [address], 03/03/2022 16:07:21 02/29/20 22 03/03/2022 COMPR EHENS XIOMARA METAB OLIC PANEL glucose 171 mg/dL 65-99 high Fasti ng refer ence inter chucho For someo ne witho ut known diabe pelon, a gluco se value >125 mg/dL indic ates that they may have diabe pelon and this shoul d be confi rmed with a follo w-up test. Not Available [address] [place], [address], 03/03/2022 16:07:21 02/29/20 22 03/03/2022 COMPR EHENS XIOMARA METAB OLIC PANEL urea nitrogen (BUN) 12 mg/dL 7-25 normal Not Available [address] [place], [address], 03/03/2022 16:07:21 02/29/20 22 03/03/2022 COMPR EHENS XIOMARA METAB OLIC PANEL eGFR 115 mL/mi n/1.7 3m2 > or = 60 normal The eGFR is based on the CKD-E PI 2020 equat ion. To calcu late the new eGFR from a previ ous Creat inine or Cysta tin C resul t, go to https ://jt gatica.tereso chavez/rina keller s/ kdoqi /gfr% 5Fcal culat or Not Available [address] [place], [address], 03/03/2022 16:07:21 02/29/20 22 03/03/2022 COMPR EHENS XIOMARA METAB OLIC PANEL BUN/creatini ne ratio not applic able (calc ) 6-22 Not Available [address], [address], 03/03/2022 16:07:21 02/29/20 22 03/03/2022 COMPR EHENS XIOMARA METAB OLIC PANEL sodium 138 mmol/ L 135-14 6 normal Not Available [address], [address], 03/03/2022 16:07:21 02/29/20 22 03/03/2022 COMPR EHENS XIOMARA METAB OLIC PANEL potassium 4.3 mmol/ L 3.5-5. 3 normal Not Available [address], [address], 03/03/2022 16:07:21 02/29/20 22 03/03/2022 COMPR EHENS XIOMARA METAB OLIC PANEL chloride 101 mmol/ L 98-110 normal Not Available [address], [address], 03/03/2022 16:07:21 02/29/20 22 03/03/2022 COMPR EHENS XIOMARA METAB OLIC PANEL carbon dioxide 30 mmol/ L 20-32 normal Not Available [address], [address], 03/03/2022 16:07:21 02/29/20 22 03/03/2022 COMPR EHENS XIOMARA METAB OLIC PANEL calcium 9.0 mg/dL 8.6-10 .3 normal Not Available [address], [address], 03/03/2022 16:07:21 02/29/20 22 03/03/2022 COMPR EHENS XIOMARA METAB OLIC PANEL protein, total 6.8 g/dL 6.1-8. 1 normal Not Available [address], [address], 03/03/2022 16:07:21 02/29/20 22 03/03/2022 COMPR EHENS XIOMARA METAB OLIC PANEL albumin 4.2 g/dL 3.6-5. 1 normal Not Available [address], [address], 03/03/2022 16:07:21 02/29/20 22 03/03/2022 COMPR EHENS XIOMARA METAB OLIC PANEL globulin 2.6 g/dL_ (calc ) 1.9-3. 7 normal Not Available [address], [address], 03/03/2022 16:07:21 02/29/20 22 03/03/2022 COMPR EHENS XIOMARA METAB OLIC PANEL albumin/glob ulin ratio 1.6 (calc ) 1.0-2. 5 normal Not Available [address], [address], 03/03/2022 16:07:21 02/29/20 22 03/03/2022 COMPR EHENS XIOMARA METAB OLIC PANEL bilirubin, total 1.2 mg/dL 0.2-1. 2 normal Not Available [address], [address], 03/03/2022 16:07:21 02/29/20 22 03/03/2022 COMPR EHENS XIOMARA METAB OLIC PANEL alkaline phosphatase 90 U/L 36-130 normal Not Available [address], [address], 03/03/2022 16:07:21 02/29/20 22 03/03/2022 COMPR EHENS XIOMARA METAB OLIC PANEL AST 19 U/L 10-40 normal Not Available [address], [address], 03/03/2022 16:07:21 02/29/20 22 03/03/2022 COMPR EHENS XIOMARA METAB OLIC PANEL ALT 25 U/L 9-46 normal Not Available [address], [address], 03/03/2022 16:07:21 02/29/20 22 03/03/2022 LIPID PANEL , STAND BRANDO LDL-choleste rol 105 mg/dL _(krystin c) high Refer ence range : <100 Bryon able range <100 mg/dL for prima ry preve ntion ; <70 mg/dL for patie nts with CHD or diabe tic patie nts with > or = 2 CHD risk facto rs. LDL-C is now calcu lated using the Yancy n-Hop kins calcu latio n, which is a valid ated novel bautistao d provi olga shayna r accur acy than the Fried gabriela equat ion in the estim ation of LDL-C . Yancy gaxiola SS et al. MANSI. 2013; 310(1 9): 2061- 2068 (http ://ed ucati on.Qu estDi Dasher. com/f aq/FA Q164) Not Available [address], [address], 03/03/2022 16:07:21 02/29/20 22 03/03/2022 LIPID PANEL , STAND BRANDO cholesterol, total 170 mg/dL <200 normal Not Available [address], [address], 03/03/2022 16:07:21 02/29/20 22 03/03/2022 LIPID PANEL , STAND BRANDO HDL cholesterol 39 mg/dL > or = 40 low Not Available [address], [address], 03/03/2022 16:07:21 02/29/20 22 03/03/2022 LIPID PANEL , STAND BRANDO triglyceride s 138 mg/dL <150 normal Not Available [facility] [address] [address], [place], [address], 03/03/2022 16:07:21 02/29/20 22 03/03/2022 LIPID PANEL , STAND BRANDO chol/HDLC ratio 4.4 (calc ) <5.0 normal Not Available [facility] [address] [address], [place], [address], 03/03/2022 16:07:21 02/29/20 22 03/03/2022 LIPID PANEL , STAND BRANDO non HDL cholesterol 131 mg/dL _(krystin c) <130 high For patie nts with diabe pelon plus 1 major ASCVD risk facto r, treat ing to a non-H DL-C goal of <100 mg/dL (LDL- C of <70 mg/dL ) is consi dered a thera peuti c optio n. Not Available [facility] [address] [address] [address] , [place], [address], 03/03/2022 16:07:21 05/08/20 23 05/08/2023 urina lysis , dipst ick Leukocytes (reference range: negative opal/ l) Negati ve Not Available [address], [place], [address], 05/08/2023 16:39:38 05/08/20 23 05/08/2023 urina lysis , dipst ick Nitrite (reference rage: negative mg/dl) negati ve Not Available [address], [place], [address], 05/08/2023 16:39:38 05/08/20 23 05/08/2023 urina lysis , dipst ick Urobilinogen (reference range: 0.2-1 mg/dl) 0.2 Not Available [address], [place], [address], 05/08/2023 16:39:38 05/08/20 23 05/08/2023 urina lysis , dipst ick Protein (reference range: negative mg/dl) Negati ve Not Available [address], [place], [address], 05/08/2023 16:39:38 05/08/20 23 05/08/2023 urina lysis , dipst ick pH (reference range: 5-7) 5.5 Not Available [address], [place], [address], 05/08/2023 16:39:38 05/08/20 23 05/08/2023 urina lysis , dipst ick Blood (reference range: negative Fernando/ l) Negati ve Not Available [address], [place], [address], 05/08/2023 16:39:38 05/08/20 23 05/08/2023 urina lysis , dipst ick Specific Sayner (reference range: 1.005-1.030) 1.020 Not Available [address], [place], [address], 05/08/2023 16:39:38 05/08/20 23 05/08/2023 urina lysis , dipst ick Ketone (reference range: negative mg/dl) Negati ve Not Available [address], [place], [address], 05/08/2023 16:39:38 05/08/20 23 05/08/2023 urina lysis , dipst ick Bilirubin (reference range: negative mg/dl) Negati ve Not Available [address], [place], [address], 05/08/2023 16:39:38 05/08/20 23 05/08/2023 urina lysis , dipst ick Glucose (reference range: negative mg/dl) Negati ve Not Available [address], [place], [address], 05/08/2023 16:39:38 05/08/20 23 05/08/2023 urina lysis , dipst ick Appearance Clear Not Available [address], [place], [address], 05/08/2023 16:39:38 05/08/20 23 05/08/2023 urina lysis , dipst ick Color Yellow Not Available [address], [place], [address], 05/08/2023 16:39:38 Result Notes None recorded. Problems Name Problem SNOMED Code Status Onset Date Resolution Date Notes Provider Name and Address Organization Details Recorded Time Microalbuminu doroteo 938538284 Active 2021 Not Available [facility] 3 23:08:28 Dyslipidemia 800450462 Active 2021 Not Available [facility] 3 23:08:28 Umbilical hernia 940411620 Active 2021 Not Available [facility] 3 23:08:28 Hypothyroidis m 00191278 Active 2021 Not Available [facility] 3 23:08:28 Well controlled type 1 diabetes mellitus 247210583 Active 2021 Not Available [facility] 3 23:08:28 Viral upper respiratory tract infection 181000769 Active 2021 Not Available [facility] 3 23:08:28 Uncontrolled type 1 diabetes mellitus 419721681 Active 2022 CRISTINE Ledesma null, [place] [facility] [place] [facility] 3 10:04:49 Essential hypertension 91462848 Active 2022 EARLINE Najera [address], [address], [place], [address] , [facility] [place] [employer] [facility] 3 15:02:40 Retinopathy due to diabetes mellitus 4940158 Active 2022 laer on right eye 2 years ago , laser on left eye 4 yaers ago . 023 EARLINE Najera [address], [address], [place], [address] , [facility] [place] [facility] 3 15:06:38 Uncontrolled type 2 diabetes mellitus 398758054 Active 2022 CRISTINE Ledesma null, [facility] [employer] [facility] 3 09:32:31 Urinary symptoms 756272601 Active 2022 Myriam Reardon RN null, [facility] [employer] [facility] 3 16:39:51 Problem Notes None recorded. Procedures Surgical History Date Name Laterality Status Provider Name and Address Organization Details Recorded Time Eye Surgery completed Not Available [facility] 07/19/2022 23:06:17 laser procedure completed Not Available [facility] 07/19/2022 23:06:17 Retina completed Cony Wright MA [facility] [employer] [facility] 11/30/2022 14:56:40 Imaging Results None recorded. Procedure Notes None recorded. Medical Equipment None Reported. Allergies No known drug allergies Medications Name Sig Start Date Stop Date Status Note LastModified by Organization Details LastModified Time lisinopril 20 mg tablet TAKE 1 TABLET BY MOUTH EVERY DAY IN THE MORNING active Not Available Not Available No t Available levothyroxi ne 25 mcg tablet Take 1 tablet every day by oral route in the morning for 30 days. active Not Available Not Available No t Available Humalog U-100 Insulin 100 unit/mL subcutaneou s solution Inject by subcutane ous route. 09/02 completed Not Available Not Available Not Available tacrolimus 0.1 % topical ointment APPLY TWICE DAILY TO PENIS WHEN FLARED. active Not Available Not Available No t Available lisinopril 10 mg tablet Take 1 tablet every day by oral route for 90 days. active Not Available Not Available No t Available Unithroid 100 mcg tablet Take 1 tablet every day by oral route in the morning for 90 days. 2022 active Not Available Not Available Not Avai lable hydrocortis one 2.5 % topical cream APPLY TO AFFECTED AREAS WHEN FLARED TWICE DAILY FOR NO MORE THAN 3 WEEKS IN A ROW active Not Available Not Available No t Available Novolog U-100 Insulin aspart 100 unit/mL subcutaneou s solution INJECT 150 UNITS EVERY DAY BY SUBCUTANE OUS ROUTE DIRECTED FOR 30 DAYS. 2022 active Not Available Not Available Not Avai lable Unithroid 75 mcg tablet TAKE 1 TABLET BY MOUTH EVERY DAY active Not Available Not Available No t Available fluocinonid e 0.05 % topical cream APPLY TWICE DAILY TO AFFECTED AREAS ON KNEES AND ELBOWS FOR 3 WEEKS. active Not Available Not Available No t Available fluocinolon e acetonide oil 0.01 % ear drops APPLY TO EARS TWICE DAILY WHEN FLARED active Not Available Not Available No t Available Basaglar KwikPen U-100 Insulin 100 unit/mL (3 mL) subcutaneou s INJECT UP TO 100 UNITS SUBCUTANE OUSLY EVERY DAY active Not Available Not Available No t Available BD Shelley 2nd Gen Pen Needle 32 gauge x 5/32 active Not Available Not Available Not Available t:slim X2 Control-IQ active Not Available Not Available N ot Available Vitals Date Recorded Body mass index (BMI) Body height Oxygen saturation Oxygen saturation in Arterial blood by Pulse oximetry Heart rate Body temperature Body weight Systolic And Diastolic Provider Name and Address Organization Details Last Updated DateTime 2 37 kg/m2 177.8 cm 99 % 99 % 86 /min 98 [degF] 282987. 83 g 150/120 mm[Hg] Not Available [facility] 3 23:07:58 Date Recorded Body height Body mass index (BMI) Body weight Body temperature Heart rate Oxygen saturation Oxygen saturation in Arterial blood by Pulse oximetry Systolic And Diastolic Provider Name and Address Organization Details Last Updated DateTime 3 177.8 cm 38.2 kg/m2 217913. 57 g 97.4 [degF] 87 /min 97 % 97 % 152/100 mm[Hg] LENY Hicks [facility] [employer] 3 14:53:07 Date Recorded Body mass index (BMI) Body height Oxygen saturation Oxygen saturation in Arterial blood by Pulse oximetry Heart rate Body temperature Body weight Systolic And Diastolic Provider Name and Address Organization Details Last Updated DateTime 1 37 kg/m2 177.8 cm 97 % 97 % 86 /min 98.2 [degF] 579559. 83 g 136/86 mm[Hg] Not Available [facility] 3 23:07:58 Date Recorded Body mass index (BMI) Body height Oxygen saturation Oxygen saturation in Arterial blood by Pulse oximetry Heart rate Body temperature Body weight Systolic And Diastolic Provider Name and Address Organization Details Last Updated DateTime 2 37.3 kg/m2 177.8 cm 95 % 95 % 98 /min 98 [degF] 845564. 02 g 170/100 mm[Hg] Not Available [facility] 23:07[facility]58 Social History Question Answer Notes LastModified by iR[employer] Details LastModified Time Tobacco Smoking Status Never Smoker CRISTINE Slater [place] - [facility] [employer] 11/30/2022 14:44:27 What Is Your Level Of Caffeine Consumption? Moderate [id number] Information not available 07/19/2022 What Is The Highest Grade Or Level Of School You Have Completed Or The Highest Degree You Have Received? PS10129-5 Information not available 11/30/2022 What Is Your Relationship Status? Single [id number] Information not available 07/19/2022 Do You Use Your Seat Belt Or Car Seat Routinely? Yes [email or web address] Information not available 11/30/2022 Do You Participate In Social Media? Yes Very Little [email or web address] Information not available 11/30/2022 Sex: Male Functional Status Question Answer Note LastModified by [employer] Details LastModified Time Do you use any illicit or recreational drugs? No Information not available 11/30/2022 Do you or have you ever used any other forms of tobacco or nicotine? No Information not available 11/30/2022 What is your level of alcohol consumption? 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 [id number] Information not available 11/30/2022 Family History Nothing Reported Notes:thinning of the arota- dad uncle Medical History Condition Response DIABETES, TYPE Y RETINOPATHY Y Past Encounters Encounter ID Performer Location Encounter Start Date Encounter Closed Date Diagnosis/Indication Diagnosis SNOMED-CT Code Diagnosis ICD10 Code Diagnosis IMO Codes Diagnosis Note [id number] Cally Gilliland MD [facility] [address] [place] [address] 12/20/2020 00:00:00 12/20/2020 16:58:33 [id number] [facility] [address] [place] [address] 09/02/2021 00:00:00 09/02/2021 16:44:30 [id number] [facility] [address] [place] [address] 04/11/2022 00:00:00 04/11/2022 18:28:01 [id number] Eliseo Camilo MD [facility] [place] [address] 11/30/2022 14:41:06 11/30/2022 16:14:57 Essential hypertension 09731732 I10 Dyslipidemia 982674943 E 78.5 Uncontroll ed type 1 diabetes mellitus 001448011 E10.65 Hypothyroidism 68720161 E03.9 [id number] Eliseo Camilo MD [facility] [place] [address] 05/08/2023 16:25:34 05/10/2023 16:34:09 Urinary symptoms 518964883 R39.9 Health Concerns Section Related Observation LastModified by Organization Detai ls LastModified Time None Recorded Concern Status LastModified by Organization Details LastModified Time None Recorded Advance Directives Directive None Recorded Payers Insurance Date Sequence Insurance Name Policy Number Policy Santillan Covered Member ID Santillan Member ID Guarantor Name 05/14/2023 1 [employer] (POS) [id number] Naman Royal [id number] Naman Royal Notes Date Note Type Note Provider Name and Address Organization Details Recorded Time 11/30/2022 text/html ROS as noted in the HPI 37 year old has an insulin pump EARLINE Najera [address] [facility], [facility] [address], [place], [address], [facility], [facility] 12/01/2022 14:47:54
--- OUTSIDE RECORDS SUMMARY | 2025-03-24 15:12 | XMS_ITS | Clinical Summary ---
Author Organization [facility] [address] [place] [phone] Care Team Providers Care Yoke Setter Name Role Phone Guilherme Collins MD Primary Care Provider Valencia Armenta MD Unavailable Valerie Baeza NP Unavailable [phone] Fredi Adams MD Unavailable Allergies No known active allergies Medications blood-glucose meter (CONTOUR NEXT METER) misc [...] 90 tablet 2 12/25/19 25 026 Active lisinopriL (PRINIVIL,ZESTRIL) 40 mg tabletIndications: Hypertension associated with diabetes (HCC) Take 1 tablet (40 mg total) by mouth daily 90 tablet 3 01/28/20 25 026 Active Active Problems Problem Noted Date Diagnosed Date Dysphagia 01/28/2025 Assessment & Plan (01/28/2025 6:27 AM CDT): Gastroesophageal reflux disease (GERD) and dysphagia GERD with symptoms of acid reflux and dysphagia, he reports family hx of hiatal hernia by several family members as related to him by a family member. Symptoms include food sticking in the throat and acid regurgitation at night. Currently managed with Tums as needed. Discussed potential for endoscopy to assess for hiatal hernia and severity of GERD. - currently only using TUMS prn, would recommend initiation of a PPI such as omeprazole - However, given concern for dysphagis Refer to gastroenterology for evaluation of GERD and dysphagia. - Consider endoscopy to assess for hiatal hernia and severity of GERD. Orders: Ambulatory referral to Gastroenterology; Future Diastasis recti 01/28/2025 Assessment & Plan (01/28/2025 6:27 AM CDT): - known condition to patient, noted on physical examination, not true hernia Proliferative diabetic retin opathy associated with type 1 diabetes mellitus 01/28/2025 Overview (01/28/2025): Follows at [facility] in [place] Assessment & Plan (01/28/2025 6:27 AM CDT): - follows with ophthalmology - long standing diabetic retinopathy, up to date with eye exam, will request records - gets injection and about to do photocoagulation procedure soon Preventative health care 01/28/2025 Assessment & Plan (01/28/2025 6:27 AM CDT): - New or chronic worsening conditions: dysphagia, GERD, concern for ELAINE - Mental health: no significant psychiatric/mental health conditions affecting her day to day functioning - Dental health: Recommend regular dental care and cleaning. Discussed importance of regular tooth brushing, flossing, and dental visits. - Nutrition: Recommend moderation in sodium/caffeine intake, saturated fat and cholesterol, caloric balance, sufficient intake of fresh fruits, vegetables - Exercise: Recommend to exercise at least 30 minutes moderate to vigorous exercise most days of the week. (minimum 150 minutes weekly) - Immunizations: Age and sex appropriate immunizations reviewed and offered No results found for: PSA Long-term current use of testosterone replacemen t therapy 01/27/2025 Overview (01/28/2025): [facility] [place] Assessment & Plan (01/28/2025 6:27 AM CDT): - follows with outside provider, on weekly TRT injections - gets labs for monitoring as well Gastroesophageal reflux disease 01/27/2025 Assessment & Plan (01/28/2025 6:27 AM CDT): Gastroesophageal reflux disease (GERD) and dysphagia GERD with symptoms of acid reflux and dysphagia, he reports family hx of hiatal hernia by several family members as related to him by a family member. Symptoms include food sticking in the throat and acid regurgitation at night. Currently managed with Tums as needed. Discussed potential for endoscopy to assess for hiatal hernia and severity of GERD. - currently only using TUMS prn, would recommend initiation of a PPI such as omeprazole - However, given concern for dysphagis Refer to gastroenterology for evaluation of GERD and dysphagia. - Consider endoscopy to assess for hiatal hernia and severity of GERD. Orders: Ambulatory referral to Gastroenterology; Future ELAINE (obstructive sleep apnea) 01/27/2025 Overview (02/20/2025): HSAT 02/2025 This is an adequate quality Home Sleep apnea Test. (HSAT) 1. This home sleep apnea test is positive for moderate obstructive sleep apnea with Respiratory Event Index (equivalent of Apnea Hypopnea Index) of 29.4 per hour. Events were worse in supine position with supine ZANDER of 33.3 and non-supine ZANDER of 16.5 per hour. 2. Nocturnal hypoxemia was noted with time spend <88 % was 1:58 hours. Assessment & Plan (01/28/2025 6:27 AM CDT): Obstructive sleep apnea (suspected, pending sleep study) Suspected obstructive sleep apnea due to severe snoring and episodes of waking with a pounding heart, suggestive of apneic events. Previous sleep study 10 years ago was inconclusive for treatment due to insurance criteria. Increased weight and age may have exacerbated symptoms. - Order home sleep study to evaluate for obstructive sleep apnea. - Discuss potential CPAP therapy if sleep study confirms diagnosis. Orders: Portable/Home Sleep Study; Future Family history of aortic aneurysm 01/27/2025 Assessment & Plan (01/28/2025 6:27 AM CDT): Screening for abdominal aortic aneurysm due to family history Family history of aortic aneurysm with multiple male relatives affected. Screening is warranted due to family history and hypertension. Discussed that the likelihood of finding an aneurysm at a younger age is low, but screening is prudent given the family history. - Order abdominal ultrasound to screen for aortic aneurysm. Provided copy of order to take to local Imaging center - Repeat screening every 3-5 years if initial ultrasound is normal. Orders: US Abdominal Aorta; Future Insulin pump in place 06/23/2024 Assessment & Plan (12/24/2024 3:19 PM CDT): Recently placed pump back on. Not enough data to review at time of appt. No changes at this time. Assessment & Plan (06/23/2024 3:37 PM [employer]): No pump setting changes at this time. Hyperlipidemia due to type 1 diabetes mellitus 0 10/04/2023 Assessment & Plan (12/24/2024 3:17 PM CDT): Chronic problem. Currently taking Rosuvastatin 20mg. Last lipid panel: 06/23/24 UVY=250, TU=741. (Restarted since last labs) Assessment & Plan (06/23/2024 2:42 PM [employer]): Chronic problem. Currently taking Rosuvastatin 20mg. Last lipid panel: 02/27/23 ADB=484, TG=94. Assessment & Plan (10/04/2023 3:56 PM [...] 39.9 in adult 02/19/2013 Assessment & Plan (01/28/2025 6:27 AM CDT): Wt Readings from Last 3 Encounters: 01/27/25 125.4 kg (276 lb 6.4 oz) 12/24/24 128.8 kg (284 lb) 06/23/24 124.3 kg (274 lb) Body mass index is 38.55 kg/m . - chronic condition, not at goal - BMI Follow-up includes: nutrition counseling, exercise counseling and education provided - Recommend to exercise at least 30 minutes moderate to vigorous exercise most days of the week. (minimum 150 minutes weekly) Class 2 obesity with interest in weight management. Currently engaged in a workout program and dietary changes with a green jobs trainer. Discussed the use of medications like Ozempic, but not suitable for type 1 diabetes and he prefers lifestyle modifications. - Continue current workout and dietary program with green jobs trainer. - Monitor weight and adjust lifestyle interventions as needed. Assessment & Plan (12/24/2024 3:20 PM CDT): [...] infection. Assessment & Plan (06/23/2024 2:55 PM [employer]): Chronic problem. A1c increased from 6.5% 10/04/23 to now 7.0%. Current medications: Novolog via Medtronic 780G insulin pump BR 3.25 CR 5 CF 10 Target 90-120 AIT 2 hours Will update labs. Verified that he uses mychart. Aware to check results/results letter in mychart. Will contact by phone if needed. DM eye exam [facility] 2022 or 2023 Discussed with Naman Royal: [...] discussed The patient also was provided with Isela, to take basal insulin in case of [...] Will repeat labs in 2-3 mos at [email or web address]] [place]. Component Latest Ref Rng 02/27/2023 10/04/2023 06/23/2024 TSH 0.30 - 4.20 mcIUnit/mL 14.80 (H) 8.29 (H) 9.12 (H) Component Latest Ref Rng 02/27/2023 10/04/2023 06/23/2024 Free T4 0.90 - 1.70 ng/dL 0.8 0.85 (L) 0.69 (L) Assessment & Plan (06/23/2024 3:02 PM [employer]): Chronic problem. Not currently taking Synthroid 50mcg daily. Will update labs. Verified that he uses mychart. Aware to check results/results letter in [employer]. Will contact by phone if needed. Assessment & Plan (10/04/2023 3:55 PM CDT): Unable to tolerate levothyroxine Update TSH and free T4 If TSH continues to rise will consider starting [place] thyroid Assessment & Plan (09/11/2017 1:10 PM CDT): Check TFT's Recommendations to follow Hypertension associated with diabetes 05/24/2011 Assessment & Plan (01/28/2025 6:27 AM CDT): BP Readings from Last 3 Encounters: 01/27/25 136/86 12/24/24 132/88 06/23/24 124/88 Hypertension managed with lisinopril 20 mg, but recent home readings indicate suboptimal control with blood pressure around 136/86 mmHg while taking double the dose. Previous readings were higher at 150/90 mmHg. No reported side effects from lisinopril, and no true allergy present despite previous documentation of brain fog as an allergy. - Increase lisinopril to 40 mg daily. - Monitor blood pressure regularly at home. Orders: lisinopriL (PRINIVIL,ZESTRIL) 40 mg tablet; Take 1 tablet (40 mg total) by mouth daily Comprehensive metabolic panel; Future CBC without differential; Future Assessment & Plan (12/24/2024 3:17 PM CDT): Chronic problem. Notes that his BP has been elevated at home & he's resume the lisinopril 20mg. BP elevated upon initial rooming but states he was in a hurry to get here. Normalized at time of recheck. Assessment & Plan (06/23/2024 2:52 PM [employer]): Chronic problem. Not on any antihypertensives. Normotensive. States that Lisinopril makes him 'brain fog.' Checks BP at home. Assessment & Plan (09/11/2017 1:09 PM CDT): Goal blood pressure is less than 140/85 Low salt diet recommended Daily aerobic exercise Continue current meds, including HENRI-I or ARB Check microalbumin Encounters Date Type Department Care Team Description 02/23/2025 Orders Only [facility] Primary Care at [address] [phone] Guilherme Collins MD ELAINE (obstructive sleep apnea) (Primary Dx) 02/18/2025 1:00 PM CDT - 02/18/2025 11:59 PM CDT Hospital Encounter [facility] [address] [place] [id number] ELAINE (obstructive sleep apnea) Discharge Disposition: Discharge to home or self care 02/17/2025 Orders Only [facility] Gastroenterology at [address] [phone] Subahsh Caldwell MD Nausea and vomiting, unspecified vomiting type (Primary Dx); Gastroesophageal reflux disease with esophagitis, unspecified whether hemorrhage 02/09/2025 Orders Only [facility] Gastroenterology at [address] [phone] Subhash Caldwell MD Dysphagia, unspecified type (Primary Dx); Gastroesophageal reflux disease without esophagitis 02/08/2025 Results Follow-Up [facility] Primary Care at [address] [phone] Guilherme Collins MD Vitamin B12, Vitamin D 25 hydroxy, CBC without differential, Additional followed-up results: 5 02/05/2025 4:15 PM CDT Lab [address] [id number] Type 1 diabetes mellitus with hyperglycemia (HCC); Hypertension associated with diabetes (HCC); Hyperlipidemia due to type 1 diabetes mellitus (HCC); Encounter for hepatitis C screening test for low risk patient 02/03/2025 Telephone [facility] Primary Care at [address] [phone] Guilherme Collins MD 01/27/2025 11:30 AM CDT Office Visit [facility] at [address] [phone] Guilherme Collins MD Preventative health care (Primary Dx); Long-term current use of testosterone replacement therapy; Psoriasis; Gastroesophageal reflux disease, unspecified whether esophagitis present; ELAINE (obstructive sleep apnea); Family history of aortic aneurysm; Proliferative diabetic retinopathy associated with type 1 diabetes mellitus, unspecified laterality, unspecified proliferative retinopathy type (HCC); Diastasis recti; Dysphagia, unspecified type; Encounter for hepatitis C screening test for low risk patient; Hypertension associated with diabetes (HCC); Class 2 severe obesity due to excess calories with serious comorbidity and body mass index (BMI) of 39.0 to 39.9 in adult (HCC); Hyperlipidemia due to type 1 diabetes mellitus (HCC); Type 1 diabetes mellitus with hyperglycemia (HCC) 01/05/2025 Orders Only [facility] [address] [place] [phone] Valerie Baeza NP Type 1 diabetes mellitus with hyperglycemia (HCC) (Primary Dx) 12/24/2024 2:30 PM CDT Office Visit [facility] [address] [place] [phone] Valerie Baeza NP Type 1 diabetes mellitus with hyperglycemia (HCC) (Primary Dx); Hypertension associated with diabetes (HCC); Hyperlipidemia due to type 1 diabetes mellitus (HCC); Insulin pump in place; Acquired hypothyroidism; Class 2 severe obesity due to excess calories with serious comorbidity and body mass index (BMI) of 39.0 to 39.9 in adult (HCC) from Last 3 Months Immunizations Immunization Administration Dates Next Due DTP 12/31/1991, 1,05/30/1988, 8,03/30/1987 DTaP 12/31/1991, 1,05/30/1988, 8,03/30/1987 Hep B, Adolescent or Pediatric 11/20/1996,1996,04/28/1996 HiB 02/05/1991 IPV 12/31/1991, 1,05/30/1988, 8,03/30/1987 Influenza, Split 05/09/2005 Influenza, Trivalent, IM (MDV) 05/17/2010 Influenza, Unspecified 01/27/2025(Deferr ed: Patient Refused),05/21/2024(Deferred: Patient Refused) MMR 12/31/1991,09/26/1988 OPV 12/31/1991, 1,05/30/1988, 8,03/30/1987 Pneumococcal Polysaccharide PPV23 12/31/2008 Td, Not Adsorbed 03/21/2002 Td, adsorbed 03/21/2002 Tdap 05/21/2007 Medical History Medical History Date Comments Personal history of other en docrine, nutritional and metabolic disease History of type 1 di abetes mellitus - (Added by TW Conv) Diabetes mellitus type I Hypertension Diabetic retinopathy associa levy with type 1 diabetes mellitus (HCC) Family History Relation Name Status Comments Father Alive Mother Alive Social History Tobacco Use Types Packs/Day Years Used Date Smoking Tobacco: Never Smokeless Tobacco: Never Alcohol Use Standard Drinks/Week Comments Not Currently 0 (1 standard drink = 0.6 oz pur e alcohol) PHQ-2 Answer Date Recorded PHQ-2 Total Score (If total score is 3 or more points, staff should administer the PHQ-9) 0 01/27/2025 AUDIT-C Answer Date Recorded Q1: How often do you have a drink containing alcohol? Never 02/16/2025 Q2: How many drinks containi ng alcohol do you have on a typical day when you are drinking? Patient does not drink Q3: How often do you have si x or more drinks on one occasion? Never 02/16/2025 Sex and Gender Information Value Date Recorded Sex Assigned at Not on file Legal Sex Male 6:47 AM [employer] Gender Identity Not on file Sexual Orientation Not on file Last Filed Vital Signs Vital Sign Reading Time Taken Comments Blood Pressure 136/86 01/27/2025 11:16 AM CDT Pulse 94 01/27/2025 11:16 AM CDT Temperature 36.7 C (98 F) 01/27/2025 11:16 AM CDT Respiratory Rate 18 12/24/2024 2:18 PM CDT Oxygen Saturation 98% 01/27/2025 11: 16 AM CDT Inhaled Oxygen Concentration - - Weight 125.4 kg (276 lb 6.4 oz) 025 11:16 AM CDT Height 180.3 cm (5' 11) 01/27/2025 11: 16 AM CDT Body Mass Index 38.55 01/27/2025 11:16 AM CDT Plan of Treatment Upcoming Encounters Date Type Department Care Team (Latest Contact Info) Description 04/28/2025 9:00 AM [employer] Hospital Encounter [address] [address] Subhash Caldwell MD [address] [place] [id number] 04/28/2025 9:00 AM [employer] Anesthesia Event [address] [address] Parker Ivey CRNA [address] [place] [address] 04/28/2025 9:00 AM [employer] - 04/28/2025 9:30 AM [employer] Surgery [address] [address] Subhash Caldwell MD [address] [place] [address] [address] [place] [address] ESOPHAGOGASTRODUODENOSCOPY Scheduled Procedures Name Priority Associated Diagnoses Date/Ti me ESOPHAGOGASTRODUODENOSCOPY Dysphagia, unspecified type Gastroesophageal reflux disease without esophagitis 04/28/2025 9:00 AM [employer] Health Maintenance Due Date Last Done Comments Varicella Vaccines (1 of 2 - 13+ 2-dose series) 10/23/1999 Pneumococcal vaccine <65 (2 of 2 - PCV) 12/31/2009 12/31/2008 HPV Vaccines (1 - 3-dose SCD M series) 2013 DTaP/Tdap/Td Vaccine (7 - Td or Tdap) 05/21/2017 05/21/2007, 03/21/2002, 03/21/2002, Additional history exists Hemoglobin A1C 12/21/2024 06/23/2024, 09/18, 02/27/2023, Additional history exists Covid-19 Vaccine (3 - 2024-2 6 season) 2025 08/19/2020, 07/29/2020 Influenza Vaccine (#1) 2025 05/17/2010, 2004 Albumin Creatinine Ratio, Urine 06/23/2025 , 02/27/2023 Foot Exam 06/23/2025 06/23/2024, 09/11/2017 TSH Level 06/23/2025 06/23/2024, 09/18, 02/27/2023 Dilated Eye Exam 01/07/2026 01/07/2025 Depression Screening 01/27/2026 01/27/2025, 09/12/19 Regular Well Visit/Exam 18-64 01/27/2026 01/27/2025 Lipid Panel 02/05/2026 02/05/2025, 02/0 07/2024, 02/27/2023, Additional history exists eGFR 02/05/2026 02/05/2025, 02/27/2023 Hepatitis B Screening Completed 11/20/1996 , 05/29/1996, 04/28/1996 Hepatitis C Screening Completed 02/05/2025 Procedures Procedure Name Priority Date/Time Associated Diagnosis Comments PORTABLE/HOME SLEEP STUDY Routine 02/19/2025 ELAINE (obstructive sleep apnea) EGFR Routine 02/05/2025 4:23 PM CDT Hypertension associated with diabetes (HCC) Type 1 diabetes mellitus with hyperglycemia (HCC) COMPREHENSIVE METABOLIC PANEL Routine 02/05/2025 4:23 PM CDT Hypertension associated with diabetes (HCC) Type 1 diabetes mellitus with hyperglycemia (HCC) LIPID PANEL Routine 02/05/2025 4:23 PM CDT Hyperlipidemia due to type 1 diabetes mellitus (HCC) Type 1 diabetes mellitus with hyperglycemia (HCC) CBC WITHOUT DIFFERENTIAL Routine 02/05/2025 4:23 PM CDT Hypertension associated with diabetes (HCC) Type 1 diabetes mellitus with hyperglycemia (HCC) VITAMIN D 25 HYDROXY Routine 02/05/2025 4:23 PM CDT Type 1 diabetes mellitus with hyperglycemia (HCC) VITAMIN B12 Routine 02/05/2025 4:23 PM CDT Type 1 diabetes mellitus with hyperglycemia (HCC) HEPATITIS C ANTIBODY Routine 02/05/2025 4:23 PM CDT Encounter for hepatitis C screening test for low risk patient DIABETIC EYE EXAM Routine 01/07/2025 ALBUMIN CREATININE RATIO, URINE Routine 06/23/2024 3:15 PM [employer] Type 1 diabetes mellitus with hyperglycemia (HCC) TSH Routine 06/23/2024 3:15 PM [employer] Acquired hypothyroidism POCT HEMOGLOBIN A1C Routine 06/23/2024 2 :30 PM [employer] Type 1 diabetes mellitus with hyperglycemia (HCC) from Last 3 Months or Most Recently Relevant to Health Maintenance Results * Portable/Home Sleep Study (02/19/2025) Impressions Abby Perales MD - 02/19/2025 HOME SLEEP APNEA TEST HISTORY: Naman Royal is a 39 y.o. male who presents for Home sleep apnea test. (HSAT). Reason for sleep study: snoring [place] Sleepiness Score: 8 Weight: 276 lbs BMI: 38.55 PROCEDURE: This is a single night diagnostic study. This Home Sleep apnea Test (HSAT) utilized an unattended FDA approved RedMed apnea link home air portable monitoring device investigating for obstructive sleep apnea. The patient was provided instructions of the device and application by the registered geospatial information technologist at the [facility]. This test was performed without a biochemistry technologist in attendance. In this study, the following parameters were monitored: Chan[place]-nasal airflow, snoring, chest respiratory effort, abdominal respiratory effort, body position, movement, oxygen saturation, and heart rate. Respiratory events are scored according to the criteria from The [place] [employer] (AASM) Manual for the scoring of sleep and associated events - version 2.6. FINDINGS: The recorded bed time starts at 12:11 am. The total recording duration is 8:11 hours. The respiratory events (RE) included 168 apneas and 65 hypopneas. The total Respiratory event index (ZANDER) was 29.4 per hour. Events were worse in supine position with supine ZANDER of 33.3 and non-supine ZANDER of 16.5 per hour. Obstructive apnea index was 16.8, central apnea index was 3.9, mixed apnea index was 0.5. Lowest SpO2 was 56 % and time spent < 88% was 1:58 hours. Oxygen desaturation index was 31.0. Patient spent 6:10 hours in supine and 1:38 hours in non-supine position. Average heart rate was 82/min, minimum heart rate was 57/min, and maximum heart rate was 117/min. INTERPRETATION: This is an adequate quality Home Sleep apnea Test. (HSAT) 1. This home sleep apnea test is positive for moderate obstructive sleep apnea with Respiratory Event Index (equivalent of Apnea Hypopnea Index) of 29.4 per hour. Events were worse in supine position with supine ZANDER of 33.3 and non-supine ZANDER of 16.5 per hour. 2. Nocturnal hypoxemia was noted with time spend <88 % was 1:58 hours. RECOMMENDATIONS: 1. Based on the findings of this home sleep test, the patient has moderate obstructive sleep apnea. Treatment with Positive Airway Pressure (PAP) devices such as continuous PAP (CPAP), auto-adjusting PAP (APAP), and bi-level PAP (Bi-PAP) is recommended. Consider CPAP titration study to determine the optimal pressure required to alleviate sleep disordered breathing. 2. Obesity, hypothyroidism or obstructive/structural abnormalities in the upper airway can be contributory to obstructive sleep apnea/hypopnea. An evaluation and management of these factors should be considered. 3. Hypnotics and sedatives can worsen the sleep apnea, hence should be avoided. 4. Patients with sleep apnea may have excessive daytime sleepiness. Patients should avoid driving, if drowsy or sleepy. 5. Weight loss for ideal body weight range is recommended. Limitations of the study: 1. A sleep EEG was not recorded; therefore, the actual amount of time spent in sleep, stages of sleep and respiratory events associated with arousals cannot be determined by this study. 2. All indexes are computed against monitoring time, not total sleep time. For this reason, the degree of severity may be underestimated * Please note: The severity of the sleep apnea may vary from night to night depending on body position during sleep, REM sleep and sleep efficiency. These factors should be taken into consideration. Abby Perales MD [facility] Sleep Medicine Narrative Abby Perales MD - 02/19/2025 Ocst is ready for review Guilherme Collins MD SLEEP CENTER ORDERABLES Final Result * eGFR (02/05/2025 4:23 PM CDT) eGFR >90 >=60 mL/min/1. 73 m2 Comment: Interpretive Data Reference Interval Normal >/= 90 mL/min/1.73m2 Mildly decreased* 60 - 89 mL/min/1.73m2 Mildly to moderately decreased 45 - 59 mL/min/1.73m2 Moderately to severely decreased 30 - 44 mL/min/1.73m2 Severely decreased 15 - 29 mL/min/1.73m2 Kidney Failure < 15 mL/min/1.73m2 *Relative to young adult level Estimated glomerular filtration rate is determined by the 2020 CKD-EPI equation recommended by the National Kidney Foundation (A Unifying Approach to GFR Estimation: Recommendations of the NKF-ASK Task Force on Reassessing the Inclusion of Race in Diagnosing Kidney Disease, JASN 2020). The CKD-EPI equation should not be used for patients with unstable renal function and has not been validated in children and those over 70. Current interpretive data was last reviewed 2021. Blood 02/05/2025 4:23 PM CDT 02/05/2025 6:20 PM CDT Guilherme Collins MD LAB BLOOD ORDERABLES Fi nal Result [facility] [address] [facility] [place] [address] * Hepatitis C antibody Blood (02/05/2025 4:23 PM CDT) [facility] Hep C Ab Nonreactive Nonreactive Comment: Antibodies to HCV not detected. Does NOT exclude the possibility of recent exposure to HCV. Current interpretive data was last revised on 22 Interpretive Data Nonreactive: Antibodies to HCV not detected. Does NOT exclude the possibility of recent exposure to HCV. Equivocal: Equivocal for HCV antibodies. Supplemental molecular testing will be automatically performed to determine infection status in accordance with current CDC screening recommendations. Reactive: Positive for HCV antibodies. This may represent current or past HCV infection. Supplemental molecular testing will be automatically performed to determine current infection status in accordance with current CDC screening recommendations. Interpretive data was last revised on 2019. Blood 02/05/2025 4:23 PM CDT 02/05/2025 6:20 PM CDT Guilherme Collins MD LAB MICROBIOLOGY - GENE RAL ORDERABLES Final Result Performing Organization Address [facility] Co de Phone Number [address] [place] [address] * (ABNORMAL) Vitamin D 25 hydroxy (02/05/2025 4:23 PM CDT) [facility] Vitamin D 25-OH 25.0(L) 30.0 - 80.0 ng/mL Blood 02/05/2025 4:23 PM CDT 02/05/2025 6:20 PM CDT Guilherme Collins MD LAB BLOOD ORDERABLES Fi nal Result Performing Organization Address [facility]/ZIP Co de Phone Number [place] [address] [facility] [place] [address] * CBC without differential (02/05/2025 4:23 PM CDT) [facility] WBC 7.75 3.80 - 9.90 K/cumm Hgb 16.0 13.0 - 17.5 g/dL [facility] Hct 47.2 38.9 - 50.3 % [facility] Plt 249 150 - 400 K/cumm [facility] MPV 10.7 9.1 - 12.3 fL [facility] RBC 5.67 4.30 - 5.80 M/cumm [facility] MCV 83.2 81.3 - 96.4 fL [facility] MCH 28.2 27.1 - 33.3 pg [facility] MCHC 33.9 32.3 - 35.7 g/dL [facility] RDW CV 12.8 11.1 - 14.9 % [facility] RDW SD 38.5 35.7 - 48.1 fL [facility] NRBC abs 0.00 0.00 - 0.01 K/cumm [facility] Blood 02/05/2025 4:23 PM CDT 02/05/2025 6:20 PM CDT Guilherme Collins MD LAB BLOOD ORDERABLES Fi nal Result Performing Organization Address [facility] Co de Phone Number [address] [place] [address] * (ABNORMAL) Vitamin B12 (02/05/2025 4:23 PM CDT) Pathologist [facility] Vitamin B12 1,676(H) 230 - 1,250 pg/mL Blood 02/05/2025 4:23 PM CDT 02/05/2025 6:20 PM CDT Guilherme Collins MD LAB BLOOD ORDERABLES Fi nal Result Performing Organization Address [facility] Co de Phone Number [address] [place] [address] * (ABNORMAL) Lipid panel (02/05/2025 4:23 PM CDT) Pathologist [facility] Cholesterol 204(H) 30 - 199 mg/dL Comment: Interpretive Data [...] Data was last revised on 2018. Triglycerides 136 <=149 mg/dL [facility] Comment: Interpretive Data Ages < or = [...] Data was last revised on 2018. HDL 41 >=40 mg/dL [facility] Comment: Interpretive Data Ages < or = [...] was last revised on 2018. LDL, calculated 138(H) <=129 mg/dL [facility] Comment: Interpretive Data Ages < or = [...] NCEP Expert Panel. Circulation 2004;110:227 3. Anibal M et al. MANSI Cardiol. 2020 September 18;5(5):540-548. doi: 10.1001/jamacardio.2020.0013 Current Interpretive Data was last revised on 2024. Non-HDL Cholesterol 163 mg/dL [facility] Comment: Interpretive Data Ages < or = [...] was last revised on 2018. Chol/HDL ratio 5 [facility] Blood 02/05/2025 4:23 PM CDT 02/05/2025 6:20 PM CDT Narrative [facility] - 02/05/2025 7:19 PM CDT Has the patient been fasting for 8 hours or more?->No Guilherme Collins MD LAB BLOOD ORDERABLES Fi nal Result [facility] [address] [facility] Department of Laboratories [place], [place] [id number] * Comprehensive metabolic panel (02/05/2025 4:23 PM CDT) Pathologist [facility] Sodium 138 135 - 145 mmol/L Potassium, pl 4.6 3.3 - 4.9 mmol/L [facility] Chloride 102 97 - 110 mmol/L [facility] CO2 25 22 - 32 mmol/L [facility] Anion gap 11 2 - 15 mmol/L [facility] BUN 18 6 - 25 mg/dL [facility] Creatinine 0.98 0.80 - 1.30 mg/dL [facility] Glucose 95 70 - 199 mg/dL [facility] Comment: Interpretive Data Fasting glucose >/= 126 mg/dl is diagnostic for diabetes. Fasting is defined as no caloric intake for at least 8 hours. Fasting glucose between 100 mg/dl to 125 mg/dl is diagnostic of prediabetes. In a patient with classic symptoms of hyperglycemia or hyperglycemic crisis, a random glucose >/= 200 mg/dl is diagnostic for diabetes. In the absence of unequivocal hyperglycemia, results should be confirmed by repeat testing. The classification and Diagnosis of Diabetes Diabetes Care 202; 46: S19-S40. Current interpretive data was last revised 2022. Calcium 9.5 8.5 - 10.3 mg/dL [facility] Bilirubin, total 1.0 0.1 - 1.2 mg/dL [facility] Protein, pl 7.5 6.5 - 8.5 g/dL [facility] Albumin 4.3 3.5 - 5.0 g/dL [facility] Alk phos 103 40 - 130 Units/L [facility] ALT 36 7 - 55 Units/L [facility] AST 32 10 - 50 Units/L [facility] Blood 02/05/2025 4:23 PM CDT 02/05/2025 6:20 PM CDT Guilherme Collins MD LAB BLOOD ORDERABLES Fi nal Result [facility] [address] [facility] [place] [address] * (ABNORMAL) Diabetic Eye Exam (01/07/2025) Historical Provider HEALTH MAINTENANCE Final Result * Albumin Creatinine Ratio, Urine (06/23/2024 3:15 PM [employer]) Albumin Ur 33.6 mg/L Comment: Interpretive Data No reference range established. Current interpretive data was last revised 2018. Creatinine Ur 138.1 mg/dL [facility] Comment: Interpretive Data No reference range established. Current interpretive data was last revised 2018. Albumin Creatinine Ratio, Ur 24 1 - 29 mg/g [facility] Urine 06/23/2024 3:15 PM [employer] 06/23/2024 11:21 PM [employer] us Valerie Magdalene Baeza [employer] LAB URINE ORDERABLES Shikha l Result [facility] [address] [facility] [place] [address] * (ABNORMAL) TSH (06/23/2024 3:15 PM [employer]) Thyroid Stimulating Hormone 9.12(H) 0.30 - 4.20 mcIUnit/mL Blood 06/23/2024 3:15 PM [employer] 06/23/2024 11:21 PM [employer] us Valerie Magdalene Baeza [employer] LAB BLOOD ORDERABLES Shikha l Result Performing Organization Address [facility] Co de Phone Number [facility] [address] [place] [address] * (ABNORMAL) POCT hemoglobin A1c (06/23/2024 2:30 PM [employer]) Hemoglobin A1C, POC 7.0 4.0 - 5.6 % Blood 06/23/2024 2:30 PM [employer] us Valeriedavy Baeza [employer] POINT OF CARE TEST ORDERA BLES Final Result from Last 3 Months or Most Recently Relevant to Health Maintenance Insurance [facility] Care Teams Yoke Setter Relationship Specialty Start Date End Date Guilherme Collins MD [address] [place] [address] PCP - General Family Medicine 01/27/25 [place] [address] [place] [address] Consulting Physician Endocrinology Diabetes & Metabolism 01/27/25 [place] [address] [facility] [address] [place] [address] Nurse Practitioner Endocrinology Diabetes & Metabolism 01/27/25 Fredi Adams MD [address] [place] [address] Referring Physician Feather Edger 01/27/25
--- OUTSIDE RECORDS SUMMARY | 2025-03-24 15:12 | XMS_ITS | Clinical Summary ---
Author Organization [facility] Address [address] [place] [address] Care Team Providers Care Cheese Production Supervisor Name Role Phone Db Lewis MD Primary Care Provider [phone] Allergies No known active allergies Medications insulin glargine (LANTUS) 100 unit/mL subCUT Soln Inject by subcutaneous injection 2 times daily. 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 90 Tab 1 1 Active insulin lispro [...] on file Legal Sex Male 5:31 AM [employer]ASS[employer] Gender Identity Not on file Sexual Orientation [...] Health Maintenance Due Date Last Done Comments HEPATITIS B VACCINES (1 of 3 - 19+ 3-dose series) 2005 DIABETES HBA1C Q 6 MONTHS 03/17/20112010, 10/09/2009, 06/01/2009 DIABETES ANNUAL FOOT EXAM 05/17/2011 05/17/2010 DIABETES ANNUAL RETINAL EXAM 05/30/2011 05/30/2010 DIABETES MICROALBUMIN ANNUAL SCREEN 09/16/201109/15, 06/01/2009 LDL CHOLESTEROL ANNUAL 09/16/2011 1, 10/09/2009, 06/01/2009 HPV VACCINES (1 - 3-dose SCDM series) 2013 DTAP/TDAP/TD VACCINES (2 - T d or [...] Creatinine, Urine 229 20 - 370 mg/dL [facility] [employer] [facility] Comment: Test Performed at: [facility] [address] BENOIT OSULLIVAN DO,MPH MICROALBUMIN, URINE 0.7 mg/dL [facility] Comment: Reference Range Not established Test Performed at: to-BB[facility] [address] [address] BENOIT OSULLIVAN DO,MPH MICROALBUMIN/CREAT RATIO, UR 3 <30 mcg/mg creat [facility] Comment: The ADA defines abnormalities in albumin [...] Result INTERFACE SYSTEM Refer to clinic/hospital department [address] [address] * (ABNORMAL) HEMOGLOBIN A1C (09/15/2010 10:10 AM CDT) HEMOGLOBIN A1C 10.0(H) <5.7 % of total Hgb [facility] Comment: Consistent with diabetes <5.7 Decreased risk of diabetes 5.7-6.0 Increased risk of diabetes 6.1-6.4 Higher risk of diabetes > or = 6.5 Consistent with diabetes Standards of Medical Care in Diabetes-2010. Diabetes Care, 33(Supp 1): S1-S61,2010. REPORT COMMENT: FASTING Test Performed at: [facility] [address] [address] BENOIT OSULLIVAN DO,MPH 09/15/2010 10:1 0 AM CDT Db Lewis MD CHEMISTRY ORDERABLES Final Re sult Performing Organization Address [facility] Phone Number INTERFACE SYSTEM Refer to clinic/hospital department [employer] [facility] [address] [place] [id number] * LIPID PANEL (09/15/2010 10:10 AM CDT) CHOLESTEROL 177 125 - 200 mg/dL [facility] Comment: Test Performed at: [facility] [address] [place] [address] BENOIT OSULLIVAN DO,MPH HDL 40 > OR = 40 mg/dL [facility] TRIGLYCERIDE 93 <150 mg/dL [facility] LDL CALCULATED 118 <130 mg/dL (calc) [facility] Comment: Desirable range <100 mg/dL for patients with CHD or diabetes and <70 mg/dL for diabetic patients with known heart disease. CHOL/HDL RATIO 4.4 < OR = 5.0 (calc) [facility] 09/15/2010 10:1 0 AM CDT Db Lewis MD CHEMISTRY ORDERABLES Final Re sult Performing Organization Address [facility] Phone Number INTERFACE SYSTEM Refer to clinic/hospital department [employer] [facility] [address] [place] [address] from Last 3 Months or Most Recently Relevant to Health Maintenance Insurance Health As We Age O OPEN ACCESS Care Teams Cheese Production Supervisor Relationship Specialty Start Date End Date Db Lewis MD PCP - General 12/31/08
== END 2025-03-24 14:40 | disposition home or self-care (01) ==
PROVIDERS: Emergency Provider Registered Nurse
DX: J06.9 Acute upper respiratory infection, unspecified (principal); K21.9 Gastro-esophageal reflux disease without esophagitis; E10.9 Type 1 diabetes mellitus without complications; I10 Essential (primary) hypertension; Z79.4 Long term (current) use of insulin
CPT/HCPCS: 81003; 87081; 87086; 87880; 99213; G0463